=== PATIENT | male | born 1950 | race Caucasian/White ===

== ENCOUNTER 2017-09-09 19:14 | Inpatient (IN) ==
[2017-09-09] MEDS ORDERED: Isovue-370 500 ML INFUS..BTL IV ONE (19:36)
--- NOTE | 2017-09-09 19:37 | Emergency Department Note ---
Disposition Clinical Impression: Perforation of sigmoid colon due to diverticulitis Leukocytosis Qualifiers: Leukocytosis type: unspecified Qualified Code(s): D72.829 - Elevated white blood cell count, unspecified Disposition: Admitted As Inpatient Condition: Fair Forms: ED Satisfaction Letter, Work/School Release Time of Disposition: 22:30 Abdominal Pain HPI - General Chief Complaint: ED Abdominal Pain Stated Complaint: CP, Abd pain, fever Time Seen by Provider: 09/09/17 19:35 Source: patient, family Mode of arrival: ambulatory Limitations: no limitations Nursing Notes Reviewed: Yes Vital Signs Reviewed: Yes - History of Present Illness HPI Narrative: Patient presents to the ED if the chief complaint of abdominal pain. Patient reports that he started developing some epigastric abdominal pain yesterday. States that he felt like he was constipated, so he started eating some prunes. States that he was massaging his abdomen and felt like the pain was moving more towards his bladder. Reports that his abdomen feels slightly more distended than usual. Also developed a fever with Tmax around 102 he said but it did respond to tylenol. States the pain is crampy and sharp at times. Nothing really seems to make it better but eating makes it worse. No h/o pancreatitis or kidney stones. No chest pain, shortness of breath, nausea, vomiting or diarrhea. Patient reports that he had diarrhea last week after being on 2 antibiotics for a dental infection. States that he has a history of trigeminal neuralgia and has been on and off antibiotics over the last month. Pain Scale: 7 - Related Data Home Medications Medication Instructions Recorded Confirmed Aspirin [Ecotrin] 325 mg PO DAILY 09/09/17 09/09/17 CarBAMazepine [Carbamazepine ER] 200 mg PO BID 09/09/17 09/09/17 Chlorhexidine Gluconate [Periogard] 15 ml MM BID PRN 09/09/17 09/09/17 Fenofibrate [Tricor] 54 mg PO DAILY 09/09/17 09/09/17 Fluticasone Propionate Nasal 1 spray NS DAILY 09/09/17 09/09/17 [Flonase] Folic Acid 1 mg PO DAILY 09/09/17 09/09/17 Metoprolol Tartrate [Metoprolol 50 mg PO BID 09/09/17 09/09/17 Tartrate] Nitroglycerin [Nitrostat] 0.4 mg SL Q5M PRN 09/09/17 09/09/17 Simvastatin [Zocor] 80 mg PO DAILY 09/09/17 09/09/17 Triamterene/Hydrochlorothiazid 1 cap PO DAILY 09/09/17 09/09/17 [Dyazide 37.5-25 Capsule] Vitamin E (Dl,Tocopheryl Acet) 400 unit PO DAILY 09/09/17 09/09/17 [Vitamin E] cloNIDine HCl [CloNIDine HCl] 0.1 mg PO BID 09/09/17 09/09/17 Allergies Allergy/AdvReac Type Severity Reaction Status Date / Time honey suckle Allergy Congested Uncoded 01/20/16 08:15 Review of Systems: As reviewed in the HPI. All other systems reviewed are negative or normal. Abdominal Pain PMH - Past Medical History Medical history: Reports: cancer, diabetes, hyperlipidemia, hypertension, myocardial infarction, other Male Surgical History: Reports: angioplasty/stent, cancer surgery Psychiatric history: Reports: no psych history - Social History Smoking status: Former smoker Alcohol use: Reports: none Drug use: Reports: none Physical Exam - General Limitations: no limitations General appearance: alert, in no apparent distress - Head Head exam: atraumatic, normocephalic, normal inspection - Eye Eye exam: Present: normal appearance, PERRL, EOMI - ENT ENT exam: normal exam, normal oropharynx, mucous membranes moist - Neck Neck exam: Present: normal inspection, full ROM, trachea midline - Chest Chest inspection: Present: normal inspection, symmetric chest wall rise - Respiratory Respiratory exam: Present: normal lung sounds bilaterally - Cardiovascular Cardiovascular exam: Present: regular rate, normal rhythm, normal heart sounds - Abdominal Exam Abdominal exam: Present: soft, tenderness, distention, guarding, hyperactive bowel sounds. Absent: rebound, rigidity Abdominal tenderness: Present: LUQ, LLQ, diffuse, mild, moderate - Extremities Exam Extremities exam: Present: normal inspection, full ROM. Absent: tenderness, pedal edema Course Course Narrative: Patient presenting to the ED with abdominal pain. Said several antibiotics recently and then diarrhea and now having diffuse crampy abdominal pain and distention. We will get labs and CT abdomen and pelvis. - Reevaluation(s) Reevaluation #1: Got called by [facility] and was told that the patient has a perforated likely diverticulitis. Spoke with on-call surgeon, who called [facility] and reviewed the CT himself and would like the patient to have an NG tube and admitted to the ICU for close monitoring. No surgery indicated at this time. Antibiotics started, and he is agreeable with Kayli. Dr. Wheeler will see him in consult and patient has been admitted to Dr. Espinosa as the hospitalist who also requested blood cultures. Patient aware and agreeable. Vital Signs Temperature 98.9 F 09/09/17 19:25 Pulse Rate 91 09/09/17 19:25 Respiratory Rate 18 09/09/17 19:25 Blood Pressure 144/75 09/09/17 19:25 O2 Sat by Pulse Oximetry 94 09/09/17 19:25 Temperature 98.9 F 09/09/17 19:25 Pulse Rate 84 09/09/17 21:05 Respiratory Rate 18 09/09/17 21:05 Blood Pressure 124/67 09/09/17 21:05 O2 Sat by Pulse Oximetry 94 09/09/17 21:05 Oxygen Delivery Oxygen Delivery Room Air Abdominal Pain - Lab Data Result diagrams: 09/09/17 19:43 09/09/17 19:43 Lab Results 09/09/17 09/09/17 09/09/17 Range/Units 19:43 19:43 19:43 WBC 14.7 H (4.3-11.1) K/mcL RBC 5.29 (4.19-5.50) M/mcL Hgb 14.9 (12.9-16.9) g/dL Hct 45.0 (37.5-50.1) % MCV 85.1 (83.0-100.0) fL MCH 28.2 (28.0-33.3) pg MCHC 33.1 (31.6-35.5) g/dL RDW 13.6 (11.5-14.5) % Plt Count 253 (140-400) K/mcL MPV 11.3 (9.4-12.4) fL Immature Gran % 0.5 (0-4) % Seg Neutrophils % 90.9 % Lymphocytes % 2.5 % Monocytes % 5.9 % Eosinophils % 0.0 % Basophils % 0.2 % Neutrophils # 13.3 H (1.6-8.9) K/mcL Lymphocytes # 0.4 L (0.6-4.6) K/mcL Monocytes # 0.9 (0.0-1.3) K/mcL Eosinophils # 0.0 (0.0-0.6) K/mcL Basophils # 0.0 (0.0-0.2) K/mcL Sodium 135 L (136-145) mEq/L Potassium 3.8 (3.5-5.1) mEq/L Chloride 98 (98-107) mEq/L Carbon Dioxide 25 (23-29) mEq/L BUN 25 H (8-23) mg/dL Creatinine 1.44 H (0.70-1.30) mg/dL Est GFR ( Amer) 60 (> 60) Est GFR (Non-Af Amer) 49 L (> 60) BUN/Creatinine Ratio 17 (6-26) Glucose 181 H (70-105) mg/dL Calculated Osmolality 289 (280-300) Lactic Acid 1.3 (0.5-2.2) mmol/L Calcium 10.1 (8.6-10.3) mg/dL Total Bilirubin 1.0 (0.3-1.0) mg/dL Direct Bilirubin 0.3 H (0.0-0.2) mg/dL Indirect Bilirubin 0.7 (0.0-1.2) mg/dL AST 16 (13-39) Units/L ALT 12 (7-52) Units/L Alkaline Phosphatase 66 (34-104) Units/L Serum Total Protein 7.7 (6.4-8.9) g/dL Albumin 4.5 (3.5-5.7) g/dL Globulin 3.2 (2.4-3.5) g/dL Albumin/Globulin Ratio 1.4 (1.1-2.2) Lipase 25 (11-82) Units/L
[2017-09-09 19:56] LABS: Hemoglobin 14.9 g/dL (12.9-16.9); Immature Granulocytes % 0.5 % (0-4); Lymphocytes % 2.5 %; Mean Corpuscular HGB Conc 33.1 g/dL (31.6-35.5); Mean Corpuscular Hemoglobin 28.2 pg (28.0-33.3); Mean Corpuscular Volume 85.1 fL (83.0-100.0); Mean Platelet Volume 11.3 fL (9.4-12.4); Monocytes % 5.9 %; Platelet Count 253 K/mcL (140-400); Red Blood Count 5.29 M/mcL (4.19-5.50); Red Cell Distribution Width 13.6 % (11.5-14.5); Segmented Neutrophils % 90.9 %
[2017-09-09 19:57] LABS: Basophils % 0.2 %; Lymphocytes # 0.4 K/mcL (0.6-4.6); Monocytes # 0.9 K/mcL (0.0-1.3); Neutrophils # 13.3 K/mcL (1.6-8.9)
[2017-09-09 20:16] LABS: Albumin 4.5 g/dL (3.5-5.7); Albumin/Globulin Ratio 1.4 (1.1-2.2); Bilirubin,Direct 0.3 mg/dL (0.0-0.2); Bilirubin,Indirect 0.7 mg/dL (0.0-1.2); Calcium 10.1 mg/dL (8.6-10.3); Globulin 3.2 g/dL (2.4-3.5); Potassium 3.8 mEq/L (3.5-5.1); Total Protein 7.7 g/dL (6.4-8.9)
[2017-09-09] MEDS ORDERED: Piperacillin/Tazobactam 3.375 GM in 0.9 % Sodium Chloride Mini Bag 100 ML IVPB ONE (22:05)
--- NOTE | 2017-09-09 22:46 | Emergency Department Note ---
Disposition Clinical Impression: Perforation of sigmoid colon due to diverticulitis Leukocytosis Qualifiers: Leukocytosis type: unspecified Qualified Code(s): D72.829 - Elevated white blood cell count, unspecified Disposition: Admitted As Inpatient Condition: Fair Referrals: Elroy Pritchett Jr, MD [Primary Care Provider] - Abdominal Pain HPI - General Chief Complaint: ED Abdominal Pain Stated Complaint: CP, Abd pain, fever Time Seen by Provider: 09/09/17 19:35 Source: patient, family Mode of arrival: ambulatory Limitations: no limitations Nursing Notes Reviewed: Yes Vital Signs Reviewed: Yes - History of Present Illness Pain Scale: 7 - Related Data Home Medications Medication Instructions Recorded Confirmed Aspirin [Ecotrin] 325 mg PO DAILY 09/09/17 09/09/17 CarBAMazepine [Carbamazepine ER] 200 mg PO BID 09/09/17 09/09/17 Chlorhexidine Gluconate [Periogard] 15 ml MM BID PRN 09/09/17 09/09/17 Fenofibrate [Tricor] 54 mg PO DAILY 09/09/17 09/09/17 Fluticasone Propionate Nasal 1 spray NS DAILY 09/09/17 09/09/17 [Flonase] Folic Acid 1 mg PO DAILY 09/09/17 09/09/17 Metoprolol Tartrate [Metoprolol 50 mg PO BID 09/09/17 09/09/17 Tartrate] Nitroglycerin [Nitrostat] 0.4 mg SL Q5M PRN 09/09/17 09/09/17 Simvastatin [Zocor] 80 mg PO DAILY 09/09/17 09/09/17 Triamterene/Hydrochlorothiazid 1 cap PO DAILY 09/09/17 09/09/17 [Dyazide 37.5-25 Capsule] Vitamin E (Dl,Tocopheryl Acet) 400 unit PO DAILY 09/09/17 09/09/17 [Vitamin E] cloNIDine HCl [CloNIDine HCl] 0.1 mg PO BID 09/09/17 09/09/17 Allergies Allergy/AdvReac Type Severity Reaction Status Date / Time honey suckle Allergy Congested Uncoded 01/20/16 08:15 Abdominal Pain PMH - Past Medical History Medical history: Reports: cancer, diabetes, hyperlipidemia, hypertension, myocardial infarction, other Male Surgical History: Reports: angioplasty/stent, cancer surgery Psychiatric history: Reports: no psych history - Social History Smoking status: Former smoker Alcohol use: Reports: none Drug use: Reports: none Physical Exam - General Limitations: no limitations General appearance: alert, in no apparent distress Course Vital Signs Temperature 98.9 F 09/09/17 19:25 Pulse Rate 91 09/09/17 19:25 Respiratory Rate 18 09/09/17 19:25 Blood Pressure 144/75 09/09/17 19:25 O2 Sat by Pulse Oximetry 94 09/09/17 19:25 Temperature 98.9 F 09/09/17 19:25 Pulse Rate 84 09/09/17 21:05 Respiratory Rate 18 09/09/17 21:05 Blood Pressure 124/67 09/09/17 21:05 O2 Sat by Pulse Oximetry 94 09/09/17 21:05 Oxygen Delivery Oxygen Delivery Room Air Abdominal Pain - Lab Data Result diagrams: 09/09/17 19:43 09/09/17 19:43 Lab Results 09/09/17 09/09/17 09/09/17 Range/Units 19:43 19:43 19:43 WBC 14.7 H (4.3-11.1) K/mcL RBC 5.29 (4.19-5.50) M/mcL Hgb 14.9 (12.9-16.9) g/dL Hct 45.0 (37.5-50.1) % MCV 85.1 (83.0-100.0) fL MCH 28.2 (28.0-33.3) pg MCHC 33.1 (31.6-35.5) g/dL RDW 13.6 (11.5-14.5) % Plt Count 253 (140-400) K/mcL MPV 11.3 (9.4-12.4) fL Immature Gran % 0.5 (0-4) % Seg Neutrophils % 90.9 % Lymphocytes % 2.5 % Monocytes % 5.9 % Eosinophils % 0.0 % Basophils % 0.2 % Neutrophils # 13.3 H (1.6-8.9) K/mcL Lymphocytes # 0.4 L (0.6-4.6) K/mcL Monocytes # 0.9 (0.0-1.3) K/mcL Eosinophils # 0.0 (0.0-0.6) K/mcL Basophils # 0.0 (0.0-0.2) K/mcL Sodium 135 L (136-145) mEq/L Potassium 3.8 (3.5-5.1) mEq/L Chloride 98 (98-107) mEq/L Carbon Dioxide 25 (23-29) mEq/L BUN 25 H (8-23) mg/dL Creatinine 1.44 H (0.70-1.30) mg/dL Est GFR ( Amer) 60 (> 60) Est GFR (Non-Af Amer) 49 L (> 60) BUN/Creatinine Ratio 17 (6-26) Glucose 181 H (70-105) mg/dL Calculated Osmolality 289 (280-300) Lactic Acid 1.3 (0.5-2.2) mmol/L Calcium 10.1 (8.6-10.3) mg/dL Total Bilirubin 1.0 (0.3-1.0) mg/dL Direct Bilirubin 0.3 H (0.0-0.2) mg/dL Indirect Bilirubin 0.7 (0.0-1.2) mg/dL AST 16 (13-39) Units/L ALT 12 (7-52) Units/L Alkaline Phosphatase 66 (34-104) Units/L Serum Total Protein 7.7 (6.4-8.9) g/dL Albumin 4.5 (3.5-5.7) g/dL Globulin 3.2 (2.4-3.5) g/dL Albumin/Globulin Ratio 1.4 (1.1-2.2) Lipase 25 (11-82) Units/L Attestation Statement - Attestation Attestation: I, Pradip Valdivia, examined this patient and my medical decision-making was reviewed with the PASTRY ASSISTANT/PA/Advanced Practice Nurse/Resident Physician. I agree with the documented findings, disposition and treatment plan as described except to the extent set forth below. 66-year-old male presents emergency Department with concerns of abdominal pain. Patient states pain is not worsening over the past few days and is unable to get out of bed today secondary to pain. Never pain like this in the past. Tenderness to palpation present in the epigastrium and left lower quadrant. Reports a fever at home, took ibuprofen prior to arrival. Denies hematemesis, hematochezia, melena. Patient is nauseated but he has not vomited. No syncope , chest pain, shortness of breath. CT of the abdomen and pelvis shows pneumoperitoneum likely secondary to perforated diverticulitis. Resident, Dr. Boykin spoke with the surgeon, Dr. Wheeler who recommended admission to the hospitalist with IV antibiotics. He should comfortable with this plan of action. Dr. Wheeler also recommended nasogastric tube for decompression of the bowels.
--- NOTE | 2017-09-09 22:48 | Internal Med History&Physical ---
Date of Encounter: 09/10/17 Time of Encounter: 22:44 Internal Medicine - H&P: HPI Chief complaint: Abd pain Admitted From: Home History of present illness: Mr. Mohan is a 66 year old male with a PMH of diet controlled diabetes mellitus type 2, CAD, HTN, HLD, ADELE, and trigeminal neuralgia who presented complaining of fever and epigastric abdominal pain since yesterday afternoon radiating to the suprapubic region. Pain severity and distention has gradually worsened. Patient reports fever with temperature 102 F at home which did not resolve after taking Tylenol. Patient reports diarrhea last week after being on two antibiotics for a dental infection. Patient denies chest pain, shortness of breath, nausea, vomiting, or diarrhea. He is not on any blood thinners. Last colonoscopy 10 years ago revealed diverticulosis. Past Med Surg Social Fam HX - Past Medical History Medical history: cancer, diabetes, hyperlipidemia, hypertension, myocardial infarction, other Additional medical history: trigeminal neuralgia Psychiatric history: no psych history - Past Surgical History Additional surgical history: skin cancer - Social History Smoking Status: Former smoker Smokeless Tobacco Status: No Alcohol use: none Drug use: none - Family History Father Hx Family Cardiac Disorders: Yes (CAD, a-fib) Mother Hx Family Cardiac Disorders: Yes (HTN) Hx Family Neurologic Disorders: Yes (CVA) Internal Medicine - H&P: Meds Aspirin [Ecotrin] 325 mg PO DAILY 09/09/17 [History] CarBAMazepine [Carbamazepine ER] 200 mg PO BID 09/09/17 [History] Chlorhexidine Gluconate [Periogard] 15 ml MM BID PRN 09/09/17 [History] Fenofibrate [Tricor] 54 mg PO DAILY 09/09/17 [History] Fluticasone Propionate Nasal [Flonase] 1 spray NS DAILY 09/09/17 [History] Folic Acid 1 mg PO DAILY 09/09/17 [History] Metoprolol Tartrate [Metoprolol Tartrate] 50 mg PO BID 09/09/17 [History] Nitroglycerin [Nitrostat] 0.4 mg SL Q5M PRN 09/09/17 [History] Simvastatin [Zocor] 80 mg PO DAILY 09/09/17 [History] Triamterene/Hydrochlorothiazid [Dyazide 37.5-25 Capsule] 1 cap PO DAILY [History] Vitamin E (Dl,Tocopheryl Acet) [Vitamin E] 400 unit PO DAILY 09/09/17 [History] cloNIDine HCl [CloNIDine HCl] 0.1 mg PO BID 09/09/17 [History] 3 Allergy/AdvReac Type Severity Reaction Status Date / Time honey suckle Allergy Congested Uncoded 01/20/16 08:15 All Systems PM: A 10-system review of systems was performed and is negative for pertinent findings except as documented above in the HPI. - Constitutional Constitutional: anorexia, fatigue, fever(s), lethargy, no chills, no weakness, no weight gain, no weight loss - EENT Eyes: no blurry vision, no diplopia Nose, mouth and throat: no sinus pain, no sore throat - Cardiovascular Cardiovascular ROS IM: palpitations, no chest pain, no lightheadedness - Respiratory Respiratory: no cough, no dyspnea on exertion, no wheezing - Gastrointestinal Gastrointestinal: abdominal pain, cramping, no diarrhea, no melena, no nausea, no vomiting - Genitourinary Genitourinary ROS male: no dysuria, no hematuria, no urinary frequency, no urinary urgency - Musculoskeletal Musculoskeletal ROS IM: no back pain, no muscle cramps, no numbness, no tingling - Integumentary Integumentary IM: no erythema, no rash, no skin ulcer, no jaundice - Neurological Neurological ROS: weakness, no confusion, no numbness, no tingling - Psychiatric Psychiatric: no anxiety, no depression - Endocrine Endocrine IM: fatigue, no polydipsia, no polyphagia, no polyuria - Hematologic/Lymphatic Hematologic/Lymphatic: no easy bleeding, no easy bruising - Constitutional Vitals: Temp Pulse Resp BP Pulse Ox 98.9 F 84 18 124/67 94 09/09/17 19:25 09/09/17 21:05 09/09/17 21:05 09/09/17 21:05 09/09/17 21:05 General appearance: Present: cooperative, mild distress, A&O X 3, pleasant, answers questions appropriately - Head Head exam: Present: atraumatic, normocephalic - Eye Eye exam: Present: PERRL, conjuntiva pink, sclera anicteric Pupils: Present: PERRL - ENT ENT exam: Present: mucous membranes dry (NG tube in place), normal exam, normal oropharynx - Neck Neck exam general surgery: Present: supple, trachea midline. Absent: lymphadenopathy - Respiratory Respiratory exam: Present: CTAB. Absent: accessory muscle use, rales, rhonchi, wheezes - Cardiovascular Cardiovascular exam: Present: RRR, +S1, +S2. Absent: diastolic murmur, gallop, rubs, systolic murmur - GI/Abdominal GI/Abdominal exam: Present: diminished bowel sounds, distended, soft, tenderness (Diffuse), no peritoneal signs - Extremities Exam Extremities exam: Present: normal capillary refill, normal inspection, warm, radial pulses palpable and symmetrical. Absent: calf tenderness, cyanotic, pedal edema - Back Exam Back exam: Present: normal inspection. Absent: paraspinal tenderness, tenderness - Neurological Exam Neurological exam: Present: CN II-XII intact, oriented X3, no focal deficits. Absent: pronater drift, facial droop, speech deficit - Psychiatric Psychiatric exam: Present: normal affect, normal mood - Skin Skin exam: Present: dry, intact, normal color, warm Internal Med - H&P Results - Labs CBC & Chem 7: 09/09/17 19:43 09/09/17 19:43 - Pulse Oximetry Interpretation Digit-Finger O2 Sat by Pulse Oximetry: 94 (Room air) - Impressions ITS Impressions Abdomen/Pelvis CT 09/09/17 19:36 IMPRESSION: Pneumoperitoneum, probably due to either perforated sigmoid diverticulitis or adjacent perforated small bowel. There is a very small fluid and gas collection adjacent to the abnormal small bowel without a definable wall which argues against an abscess. This may simply represent a loculated fluid and gas collection related to the perforation. Critical results were called by Dr. Jacky Bagley MD to Nahid Boykin on 09/09/2017 at 21:42. D/ / Jacky Bagley MD / Jacky Bagley MD Interpreting Provider: Jacky Bagley MD - Assessment and plan (1) Perforation of sigmoid colon due to diverticulitis Current Visit: Yes Status: Acute Assessment and plan: Patient with fever, abd distension and CT abd/plv reveals pneumoperitoneum, probably due to either perforated sigmoid diverticulitis or adjacent perforated small bowel. Last colonoscopy 10 years ago revealed diverticulosis. ER physician discussed case and CT findings with surgeon, Dr. Wheeler NG tube placed in the ED Continue empiric Zosyn Continue normal saline 100 mL/h Nothing by mouth Await further surgeon recommendations, anticipate exploratory laparotomy vs. antibiotic management depending on clinical course Continue close monitoring (2) PONCHO (acute kidney injury) Current Visit: Yes Status: Acute Assessment and plan: Diabetic patient with elevated creatinine, GFR 49, unknown history of CKD Hold home hydrochlorothiazide Avoid nephrotoxins Continue gentle hydration Continue to monitor (3) Diabetes mellitus type 2 in nonobese Current Visit: No Status: Chronic Assessment and plan: HGB a1c 5.9 on 06/05/17 Diet controlled Continue accu-checks (4) CAD (coronary artery disease) Current Visit: No Status: Chronic Assessment and plan: Continue home meds: ASA, NTG Qualifiers: Coronary Disease-Associated Artery/Lesion type: unspecified vessel or lesion type [place] vs. transplanted heart: [place] heart Associated angina: without angina Qualified Code(s): I25.10 - Atherosclerotic heart disease of [place] coronary artery without angina pectoris (5) Hypertension Current Visit: No Status: Chronic Assessment and plan: Continue home meds: Metoprolol, Clonidine Qualifiers: Hypertension type: essential hypertension Qualified Code(s): I10 - Essential (primary) hypertension (6) Hyperlipidemia Current Visit: No Status: Chronic Assessment and plan: Continue home meds: Zocor Qualifiers: Hyperlipidemia type: unspecified Qualified Code(s): E78.5 - Hyperlipidemia , unspecified (7) ADELE on CPAP Current Visit: No Status: Chronic Assessment and plan: Continue CPAP at bedtime (8) DVT prophylaxis Current Visit: No Status: Chronic Assessment and plan: EPCDs - Time Spent With Patient Total time spent is greater than 50% in coordination of care (as documented) at patient's floor/unit and/or counseling patient:
[2017-09-09] MEDS ORDERED: Naloxone 0.4 MG/ML INJ IVP PRN (23:01)
[2017-09-09] MEDS ORDERED: Ondansetron ODT 4 MG TAB.RAPDIS SL PRN (23:01)
[2017-09-09 23:24] LABS: Prothrombin Time 11.8 Seconds (9.4-12.1)
[2017-09-10] MEDS: 0.9 % Sodium Chloride 1,000 ML IVC SCH ×2 (00:13→12:13)
[2017-09-10] MEDS: cloNIDine HCl 0.1 MG TABLET PO SCH ×3 (00:13→20:25)
[2017-09-10] MEDS: OXYCODONE Oral CONC 10 MG/0.5 ML ORAL.SYG SL PRN ×4 (04:26→17:40)
[2017-09-10 05:44] LABS: Basophils % 0.2 %; Eosinophils % 0.1 %; Hemoglobin 13.5 g/dL (12.9-16.9); Immature Granulocytes % 0.4 % (0-4); Lymphocytes # 0.6 K/mcL (0.6-4.6); Lymphocytes % 4.4 %; Mean Corpuscular HGB Conc 32.9 g/dL (31.6-35.5); Mean Corpuscular Hemoglobin 28.1 pg (28.0-33.3); Mean Corpuscular Volume 85.2 fL (83.0-100.0); Mean Platelet Volume 10.9 fL (9.4-12.4); Monocytes # 1.1 K/mcL (0.0-1.3); Monocytes % 7.9 %; Neutrophils # 11.7 K/mcL (1.6-8.9); Platelet Count 217 K/mcL (140-400); Red Blood Count 4.81 M/mcL (4.19-5.50); Red Cell Distribution Width 13.8 % (11.5-14.5)
[2017-09-10 06:10] LABS: Calcium 9.4 mg/dL (8.6-10.3); Potassium 3.5 mEq/L (3.5-5.1)
[2017-09-10] MEDS ORDERED: Piperacillin/Tazobactam 3.375 GM in 0.9 % Sodium Chloride Mini Bag 100 ML IVPB SCH (07:00)
[2017-09-10] MEDS ORDERED: Aspirin Enteric Coated 325 MG Tablet PO SCH (09:00)
[2017-09-10] MEDS ORDERED: Fluticasone Propionate Nasal 50 MCG/SPRAY BOTTLE NS SCH (09:00)
[2017-09-10] MEDS ORDERED: CarBAMazepine XR (12 hr) 100 MG TAB PO SCH (09:00)
[2017-09-10] MEDS ORDERED: Fenofibrate 54 MG TABLET PO SCH (09:00)
[2017-09-10] MEDS ORDERED: Folic Acid 1 MG TABLET PO SCH (09:00)
[2017-09-10] MEDS ORDERED: Naloxone 0.4 MG/ML INJ IVP PRN (09:42)
[2017-09-10] MEDS ORDERED: Ondansetron ODT 4 MG TAB.RAPDIS SL PRN (09:42)
[2017-09-10] MEDS ORDERED: 0.9 % Sodium Chloride 1,000 ML IVC SCH (09:42)
[2017-09-10] MEDS ORDERED: Chlorhexidine Rinse 15 ML MOUTHWASH MM PRN ×2 (10:00)
[2017-09-10] MEDS ORDERED: 0.9 % Sodium Chloride 1,000 ML ONE (10:11)
--- NOTE | 2017-09-10 11:07 | General Surgery Consult Note ---
Date of Encounter: 09/10/17 Time of Encounter: 10:45 Assessment and Plan (1) Perforation of sigmoid colon due to diverticulitis Current Visit: Yes Status: Acute Conservative management: NPO except ice chips and sips with medications NG tube removal IV fluids- 100ml/hour IV antibiotics- Zosyn Supportive care and pain control Serial abdominal exams IS every 1 hour while awake Repeat am labs- CBC, BMP Plan for interval colonoscopy in 6-[address] Wheeler (2) PONCHO (acute kidney injury) Current Visit: Yes Status: Acute Cr- 1.44>1.46 IV fluids Strict I&Os Avoid nephrotoxic medications Repeat am BMP (3) DVT prophylaxis Current Visit: No Status: Chronic Ambulate hallways TID with assistance EPCDs to bilateral lower extremities for DVT prophylaxis History of Present Illness Consult date: 09/09/17 Reason for consult: other (Abnormal CT perforated diverticuitis) Requesting physician: Stan Peralta History of present illness: Mr. Mohan is a 66 year old male who presented to the ED last evening with complaint of acute onset of abdominal pain which started on 09/08/17 around lunch time. He states that the pain was localized to his central abdomen and has since migrated into his lower abdomen. He reports an aching pain which has improved since admission to the hospital. He has never experienced pain like this in the past. He does report having diarrhea for the past few weeks after being treated with PO antibiotics for a sinusitis and then subsequent oral infection. He states that the diarrhea did resolve after completion of antibiotics and he was feeling good until 2 days ago when he developed abdominal pain. Admits to nausea but denies any vomiting. Denies any constipation. Denies any melena or hematochezia. Admits to fever up to 101.5 yesterday. Denies any chest pains or shortness of breath. Mild discomfort noted today with urination. He has had a CAT scan completed which shows evidence of suspected perforated diverticulitis. The patient has been admitted to the hospital for further workup and treatment. We have been asked to see and evaluate him for further recommendations. Past Med Surg Social Fam HX - Past Medical History Source: patient, old records reviewed Medical history: cancer (skin- squamous cell carcinoma (right parietal scalp)), diabetes, hyperlipidemia, hypertension, myocardial infarction, other Additional medical history: trigeminal neuralgia, sleep apnea Psychiatric history: no psych history - Past Surgical History Surgical History: angioplasty/stent (angioplasty only in 1993), vasectomy Additional surgical history: skin cancer- Mohs procedure; Colonoscopy [address] Bains - Social History Smoking Status: Former smoker Smokeless Tobacco Status: No Alcohol use: none Drug use: none Current living situation: Home - Independent Activity Level: Independent ambulation - Family History Father Hx Family Cardiac Disorders: Yes (CAD, a-fib) Mother Living Status: Cause of : Hemorrhagic CVA Hx Family Cardiac Disorders: Yes (HTN) Hx Family Neurologic Disorders: Yes (CVA) Medications and Allergies Aspirin [Ecotrin] 325 mg PO DAILY 09/09/17 [History] CarBAMazepine [Carbamazepine ER] 200 mg PO BID 09/09/17 [History] Chlorhexidine Gluconate [Periogard] 15 ml MM BID PRN 09/09/17 [History] Fenofibrate [Tricor] 54 mg PO DAILY 09/09/17 [History] Fluticasone Propionate Nasal [Flonase] 1 spray NS DAILY 09/09/17 [History] Folic Acid 1 mg PO DAILY 09/09/17 [History] Metoprolol Tartrate [Metoprolol Tartrate] 50 mg PO BID 09/09/17 [History] Nitroglycerin [Nitrostat] 0.4 mg SL Q5M PRN 09/09/17 [History] Simvastatin [Zocor] 80 mg PO DAILY 09/09/17 [History] Triamterene/Hydrochlorothiazid [Dyazide 37.5-25 Capsule] 1 cap PO DAILY [History] Vitamin E (Dl,Tocopheryl Acet) [Vitamin E] 400 unit PO DAILY 09/09/17 [History] cloNIDine HCl [CloNIDine HCl] 0.1 mg PO BID 09/09/17 [History] 3 Allergy/AdvReac Type Severity Reaction Status Date / Time honey suckle Allergy Congested Uncoded 01/20/16 08:15 Review of Systems All systems PM: reviewed and no additional remarkable complaints except as stated (in the HPI) All systems PM: The remainder of the systems were reviewed and are negative General Surgery Exam Initial Vital Signs Temp Pulse Resp BP Pulse Ox 98.9 F 91 18 144/75 94 09/09/17 19:25 09/09/17 19:25 09/09/17 19:25 09/09/17 19:25 09/09/17 19:25 - General physical appearance well developed, well nourished, moderate pain - Eyes normal ocular movement - ENT normal mucosa, atraumatic, normocephalic - Neck trachea midline - Respiratory normal respiratory effort, clear to auscultation - Cardiovascular Cardiovascular exam: Present: RRR - Abdomen Abdomen general surgery: Present: bowel sounds present, soft, tender (mildly ), wound (NG tube to LIWS with minimal drainage noted) Abdominal Tenderness: Present: suprapubic - Integumentary Integumentary general surgery: Present: warm and dry - Neurologic Present: CN 2-12 grossly intact - Musculoskeletal Present: normal gait, normal posture - Psychiatric Psychiatric general surgery: Present: appropriate, oriented to person, oriented to place, oriented to time, speech is normal, memory intact Exam Initial Vital Signs Temp Pulse Resp BP Pulse Ox 98.9 F 91 18 144/75 94 09/09/17 19:25 09/09/17 19:25 09/09/17 19:25 09/09/17 19:25 09/09/17 19:25 Results - Labs 09/10/17 05:28 09/10/17 05:28 Abnormal lab results WBC 13.4 K/mcL (4.3-11.1) H 09/10/17 05:28 Neutrophils # 11.7 K/mcL (1.6-8.9) H 09/10/17 05:28 BUN 27 mg/dL (8-23) H 09/10/17 05:28 Creatinine 1.46 mg/dL (0.70-1.30) H 09/10/17 05:28 Est GFR ( Amer) 59 (> 60) L 09/10/17 05:28 Est GFR (Non-Af Amer) 48 (> 60) L 09/10/17 05:28 Glucose 136 mg/dL (70-105) H 09/10/17 05:28 POC Glucose 152 mg/dL (70-99) H 09/09/17 23:12 Direct Bilirubin 0.3 mg/dL (0.0-0.2) H 09/09/17 19:43 Diabetes panel 09/10/17 Range/Units 05:28 Sodium 137 (136-145) mEq/L Potassium 3.5 (3.5-5.1) mEq/L Chloride 102 (98-107) mEq/L Carbon Dioxide 23 (23-29) mEq/L BUN 27 H (8-23) mg/dL Creatinine 1.46 H (0.70-1.30) mg/dL Glucose 136 H (70-105) mg/dL Calcium 9.4 (8.6-10.3) mg/dL Calcium panel 09/10/17 Range/Units 05:28 Calcium 9.4 (8.6-10.3) mg/dL Pituitary panel 09/10/17 Range/Units 05:28 Sodium 137 (136-145) mEq/L Potassium 3.5 (3.5-5.1) mEq/L Chloride 102 (98-107) mEq/L Carbon Dioxide 23 (23-29) mEq/L BUN 27 H (8-23) mg/dL Creatinine 1.46 H (0.70-1.30) mg/dL Glucose 136 H (70-105) mg/dL Calcium 9.4 (8.6-10.3) mg/dL Adrenal panel 09/10/17 Range/Units 05:28 Sodium 137 (136-145) mEq/L Potassium 3.5 (3.5-5.1) mEq/L Chloride 102 (98-107) mEq/L Carbon Dioxide 23 (23-29) mEq/L BUN 27 H (8-23) mg/dL Creatinine 1.46 H (0.70-1.30) mg/dL Glucose 136 H (70-105) mg/dL Calcium 9.4 (8.6-10.3) mg/dL All other labs normal. - Imaging CT scan - abdomen: report reviewed CT scan - pelvis: report reviewed Additional studies: Abdomen/Pelvis CT 09/09/17 19:36 IMPRESSION: Pneumoperitoneum, probably due to either perforated sigmoid diverticulitis or adjacent perforated small bowel. There is a very small fluid and gas collection adjacent to the abnormal small bowel without a definable wall which argues against an abscess. This may simply represent a loculated fluid and gas collection related to the perforation. Critical results were called by Dr. Jacky Bagley MD to Nahid Ashutosh on 09/09/2017 at 21:42. D/ / Jacky Bagley MD / Jacky Bagley MD Interpreting Provider: Jacky Bagley MD Consult Discharge Plan - Plan Referrals: Elroy Pritchett Jr, MD [Primary Care Provider] - - Attending Attestation For this encounter, I have reviewed the WAVE GUIDE ASSEMBLER or PA documentation, treatment plan, and medical decision making; and I have had face to face time with this patient.
[2017-09-10] MEDS: Piperacillin/Tazobactam 3.375 GM in 0.9 % Sodium Chloride Mini Bag 100 ML IVPB SCH (14:08)
--- NOTE | 2017-09-10 16:04 | Internal Med Progress Note ---
Date of Encounter: 09/10/17 Time of Encounter: 16:02 - Assessment and plan (1) Hypertension Current Visit: No Status: Chronic Assessment and plan: Continue home meds: Metoprolol and Clonidine Qualifiers: Hypertension type: essential hypertension Qualified Code(s): I10 - Essential (primary) hypertension (2) Perforation of sigmoid colon due to diverticulitis Current Visit: Yes Status: Acute Assessment and plan: Patient with fever, abd distension and CT abd/plv reveals pneumoperitoneum, probably due to either perforated sigmoid diverticulitis or adjacent perforated small bowel. Last colonoscopy 10 years ago revealed diverticulosis. NG placed in Ed discontinued. Continue on Zosyn and fluids. NPO. Surgery monitoring on conservative management for now with Zosyn, fluids, pain ocntrol and serial abdominal x rays. Recommending Plan for interval colonoscopy in 6-[address] Summer thorne (3) Hyperlipidemia Current Visit: No Status: Chronic Assessment and plan: Continue home meds: Zocor Qualifiers: Hyperlipidemia type: unspecified Qualified Code(s): E78.5 - Hyperlipidemia , unspecified (4) Diabetes mellitus type 2 in nonobese Current Visit: No Status: Chronic Assessment and plan: HGB a1c 5.9 on 06/05/17. Diet controlled. Continue accu-checks (5) CAD (coronary artery disease) Current Visit: No Status: Chronic Assessment and plan: Continue home meds: ASA and NTG prn Qualifiers: Coronary Disease-Associated Artery/Lesion type: unspecified vessel or lesion type [place] vs. transplanted heart: [place] heart Associated angina: without angina Qualified Code(s): I25.10 - Atherosclerotic heart disease of [place] coronary artery without angina pectoris (6) ADELE on CPAP Current Visit: No Status: Chronic Assessment and plan: Continue CPAP at bedtime (7) DVT prophylaxis Current Visit: No Status: Chronic Assessment and plan: EPCDs (8) PONCHO (acute kidney injury) Current Visit: Yes Status: Acute Assessment and plan: Diabetic patient with elevated creatinine, GFR 49, unknown history of CKD Hold home hydrochlorothiazide Avoid nephrotoxins. Continue gentle hydration Continue to monitor renal function daily. - Time Spent With Patient Total time spent is greater than 50% in coordination of care (as documented) at patient's floor/unit and/or counseling patient: less than 15 minutes - Subjective Interval history: Pt states he tried moving around and his developed abdominal pain. Denies fever and chills. Denies N/V or diarrhea. Denies CP or SOB. - Constitutional Vitals: Temp Pulse Resp BP Pulse Ox 98.3 F 79 19 133/78 96 09/10/17 11:53 09/10/17 11:53 09/10/17 11:53 09/10/17 11:53 09/10/17 11:53 General appearance: Present: cooperative, mild distress, A&O X 3, pleasant, answers questions appropriately - Head Head exam: Present: atraumatic, normocephalic - Eye Eye exam: Present: PERRL, conjuntiva pink, sclera anicteric Pupils: Present: PERRL - Neck Neck exam general surgery: Present: supple, trachea midline. Absent: lymphadenopathy - Respiratory Respiratory exam: Present: CTAB. Absent: accessory muscle use, rales, rhonchi, wheezes - Cardiovascular Cardiovascular exam: Present: RRR, +S1, +S2. Absent: diastolic murmur, gallop, rubs, systolic murmur - GI/Abdominal GI/Abdominal exam: Present: normal bowel sounds, soft, no peritoneal signs. Absent: distended, tenderness Additional comments: generalized abdominal pain with palpation - Extremities Exam Extremities exam: Present: warm, radial pulses palpable and symmetrical. Absent : calf tenderness, cyanotic, pedal edema - Neurological Exam Neurological exam: Present: CN II-XII intact, oriented X3, no focal deficits. Absent: pronater drift, facial droop, speech deficit - Skin Skin exam: Present: dry, intact Internal Medicine: Result - Labs CBC & Chem 7: 09/10/17 05:28 09/10/17 05:28 Labs: Short CBC 09/10/17 Range/Units 05:28 WBC 13.4 H (4.3-11.1) K/mcL Hgb 13.5 (12.9-16.9) g/dL Hct 41.0 (37.5-50.1) % Plt Count 217 (140-400) K/mcL Neutrophils # 11.7 H (1.6-8.9) K/mcL BMP 09/10/17 05:28 Sodium 137 Potassium 3.5 Chloride 102 Carbon Dioxide 23 BUN 27 H Creatinine 1.46 H Glucose 136 H Calcium 9.4 - ABG Interpretation ABG results: PT/INR, D-dimer PT 11.8 Seconds (9.4-12.1) 09/09/17 19:42 - VTE Documentation of Mechanical Device: Intermittent pneumatic compression device Consult Discharge Plan - Plan Referrals: Elroy Pritchett Jr, MD [Primary Care Provider] -
[2017-09-10] MEDS: CarBAMazepine XR (12 hr) 100 MG TAB PO SCH (20:25)
[2017-09-11] MEDS: Piperacillin/Tazobactam 3.375 GM in 0.9 % Sodium Chloride Mini Bag 100 ML IVPB SCH ×3 (00:25→21:57)
[2017-09-11 05:47] LABS: Basophils % 0.3 %; Eosinophils # 0.2 K/mcL (0.0-0.6); Eosinophils % 1.5 %; Hematocrit 42.3 % (37.5-50.1); Hemoglobin 13.9 g/dL (12.9-16.9); Immature Granulocytes % 0.7 % (0-4); Lymphocytes # 0.7 K/mcL (0.6-4.6); Lymphocytes % 5.5 %; Mean Corpuscular HGB Conc 32.9 g/dL (31.6-35.5); Mean Corpuscular Hemoglobin 28.7 pg (28.0-33.3); Mean Corpuscular Volume 87.4 fL (83.0-100.0); Mean Platelet Volume 11.5 fL (9.4-12.4); Monocytes % 7.9 %; Neutrophils # 10.2 K/mcL (1.6-8.9); Platelet Count 222 K/mcL (140-400); Red Blood Count 4.84 M/mcL (4.19-5.50); Red Cell Distribution Width 13.7 % (11.5-14.5); Segmented Neutrophils % 84.1 %
[2017-09-11 06:06] LABS: BUN/Creatinine Ratio 19 (6-26); Blood Urea Nitrogen 26 mg/dL (8-23); Calcium 9.2 mg/dL (8.6-10.3); Carbon Dioxide 26 mEq/L (23-29); Chloride 104 mEq/L (98-107); Glucose 96 mg/dL (70-105); Osmolality,Calculated 291 (280-300); Potassium 3.9 mEq/L (3.5-5.1); Sodium 138 mEq/L (136-145); eGFR For African Americans > 60 (> 60); eGFR For Non-African Americans 51 (> 60)
--- NOTE | 2017-09-11 06:47 | Electrocardiograph Report ---
[address] [place], [place] [address] Test Date: 2017-09-09 Pat Name: Ike Mohan Department: 104 Room: 2A24 Gender: M Tax Examining Technician: TO : 1950 Requested By: Pradip España Order Number: [id number] Reading MD: Brown Dewey Measurements Intervals [place] Rate: 90 P: 33 UT: 149 QRS: -31 QRSD: 80 T: 46 QT: 338 QTc: 385 Interpretive Statements SINUS RHYTHM LEFT ATRIAL ENLARGEMENT PATTERN CONSISTENT WITH PULMONARY DISEASE LEFT VENTRICULAR HYPERTROPHY INFERIOR MYOCARDIAL INFARCTION, PROBABLY OLD WITH POSTERIOR EXTENSION Electronically Signed On 09-11-2017 6:45:51 EDT by Brown Dewey
--- NOTE | 2017-09-11 08:37 | General Surgery Progress Note ---
Date of Encounter: 09/11/17 Time of Encounter: 08:35 - Assessment and Plan (1) Perforation of sigmoid colon due to diverticulitis Current Visit: Yes Status: Acute Conservative management: Okay to trial liquids in addition to IV fluids per primary team with concern of his kidney injury I&Os IV antibiotics- Zosyn Supportive care and pain control Serial abdominal exams IS every 1 hour while awake Repeat am labs- CBC, BMP Follow up appointment with Dr. Wheeler (2) Leukocytosis Current Visit: Yes Status: Acute continue antibiotics - Zosyn Qualifiers: Leukocytosis type: unspecified Qualified Code(s): D72.829 - Elevated white blood cell count, unspecified (3) PONCHO (acute kidney injury) Current Visit: Yes Status: Acute Avoid nephrotoxic medications continue to monitor renal function (4) DVT prophylaxis Current Visit: No Status: Chronic Ambulate hallways TID with assistance EPCDs to bilateral lower extremities for DVT prophylaxis Subjective Patient reports: no new complaints, feels better, still having pain, pain is less, voiding w/o difficulty, no flatus (2 days since last flatus), no bowel movement, nausea, afebrile (Feeling slighlty better but noticed "bloating") Objective Vital Signs - Last 8 Hours Temp Pulse Resp BP Pulse Ox 09/11/17 06:55 98.4 F 74 16 148/77 95 09/11/17 04:04 98.3 F 77 17 144/77 94 Intake and Output 09/10/17 09/11/17 09/11/17 23:59 07:59 15:59 Intake Total 100 / 100 Balance 100 / 100 Intake: IV Fluids 100 / 100 Zosyn 3.375 GM In 0.9 % Sodium 100 / 100 Chloride (Mini-Bag +) 100 ML @ 25 mls/hr IVPB Q8H [facility] Rx#: [id number] Oral 0 / 0 Other: Meal NPO Percent of Meal Consumed 0% Weight 75.353 kg Blood Glucose* 99 96 Patient Weight 09/11/17 23:59 Weight 75.353 kg - General physical appearance well developed, well nourished, no distress, moderate pain - Eyes normal ocular movement - ENT atraumatic, normocephalic, CN 2-12 grossly intact - Neck Neck exam: no masses - Cardiovascular Cardiovascular exam: Present: RRR, no murmurs/rubs/gallops - Abdomen Abdomen: Present: bowel sounds present, tender Abdominal Tenderness: diffusely Hernia: none - Integumentary no rash, no growths, no abnormal pigmentation - Neurologic normal coordination, normal sensation - Musculoskeletal normal gait, normal posture - Psychiatric oriented to time, oriented to person, oriented to place, speech is normal, memory intact - Labs 09/11/17 04:48 09/11/17 04:48 Diabetes panel 09/11/17 Range/Units 04:48 Sodium 138 (136-145) mEq/L Potassium 3.9 (3.5-5.1) mEq/L Chloride 104 (98-107) mEq/L Carbon Dioxide 26 (23-29) mEq/L BUN 26 H (8-23) mg/dL Creatinine 1.39 H (0.70-1.30) mg/dL Glucose 96 (70-105) mg/dL Calcium 9.2 (8.6-10.3) mg/dL Calcium panel 09/11/17 Range/Units 04:48 Calcium 9.2 (8.6-10.3) mg/dL Pituitary panel 09/11/17 Range/Units 04:48 Sodium 138 (136-145) mEq/L Potassium 3.9 (3.5-5.1) mEq/L Chloride 104 (98-107) mEq/L Carbon Dioxide 26 (23-29) mEq/L BUN 26 H (8-23) mg/dL Creatinine 1.39 H (0.70-1.30) mg/dL Glucose 96 (70-105) mg/dL Calcium 9.2 (8.6-10.3) mg/dL Adrenal panel 09/11/17 Range/Units 04:48 Sodium 138 (136-145) mEq/L Potassium 3.9 (3.5-5.1) mEq/L Chloride 104 (98-107) mEq/L Carbon Dioxide 26 (23-29) mEq/L BUN 26 H (8-23) mg/dL Creatinine 1.39 H (0.70-1.30) mg/dL Glucose 96 (70-105) mg/dL Calcium 9.2 (8.6-10.3) mg/dL - VTE Documentation of Mechanical Device: Intermittent pneumatic compression device Consult Discharge Plan - Plan Referrals: Elroy Pritchett Jr, MD [Primary Care Provider] - Kevin Wheeler DO [Partnered Physician] - 10/14/17 9:00 am
[2017-09-11] MEDS: CarBAMazepine XR (12 hr) 100 MG TAB PO SCH (08:46)
[2017-09-11] MEDS: cloNIDine HCl 0.1 MG TABLET PO SCH (08:46)
[2017-09-11] MEDS ORDERED: Fenofibrate 54 MG TABLET PO SCH (09:00)
[2017-09-11] MEDS ORDERED: Aspirin Enteric Coated 325 MG Tablet PO SCH (09:00)
[2017-09-11] MEDS ORDERED: Fluticasone Propionate Nasal 50 MCG/SPRAY BOTTLE NS SCH (09:00)
[2017-09-11] MEDS ORDERED: Folic Acid 1 MG TABLET PO SCH (09:00)
[2017-09-11] MEDS: OXYCODONE Oral CONC 10 MG/0.5 ML ORAL.SYG SL PRN (12:33)
--- NOTE | 2017-09-11 13:22 | Anesthesia Evaluation PreOp ---
Date of Encounter: 09/11/17 Time of Encounter: 13:19 - Past History Planned Operation: Robotic Diverting Colostomy Cardiac History: [place] (994), HTN, Hyperlipidemia, Other (CAD S/P PTCA) Pulmonary History: Former smoker (quit 30 years ago), Snore, ADELE Dx (uses CPAP) PROJECT MANAGEMENT IT SPECIALIST History: Denies Any Significant HX Other Medical History: Diabetes Type II Anesthesia History: No Prior Anesthetic Complications, Past Anesthesia Alcohol Use: rarely Drug use: none Medications and Allergies Aspirin [Ecotrin] 325 mg PO DAILY 09/09/17 [History] CarBAMazepine [Carbamazepine ER] 200 mg PO BID 09/09/17 [History] Chlorhexidine Gluconate [Periogard] 15 ml MM BID PRN 09/09/17 [History] Fenofibrate [Tricor] 54 mg PO DAILY 09/09/17 [History] Fluticasone Propionate Nasal [Flonase] 1 spray NS DAILY 09/09/17 [History] Folic Acid 1 mg PO DAILY 09/09/17 [History] Metoprolol Tartrate [Metoprolol Tartrate] 50 mg PO BID 09/09/17 [History] Nitroglycerin [Nitrostat] 0.4 mg SL Q5M PRN 09/09/17 [History] Simvastatin [Zocor] 80 mg PO DAILY 09/09/17 [History] Triamterene/Hydrochlorothiazid [Dyazide 37.5-25 Capsule] 1 cap PO DAILY [History] Vitamin E (Dl,Tocopheryl Acet) [Vitamin E] 400 unit PO DAILY 09/09/17 [History] cloNIDine HCl [CloNIDine HCl] 0.1 mg PO BID 09/09/17 [History] 3 Allergy/AdvReac Type Severity Reaction Status Date / Time honey suckle Allergy Congested Uncoded 01/20/16 08:15 - Meds/Allergy Pre-op Review Medications Reviewed: Yes Allergies Reviewed: Yes Beta Blockers on Current Med List: Yes If Beta Blockers taken, Date/Time (Last Dose taken): 09/11/2017 at 0846 Anesthesia Results - Labs 09/11/17 04:48 09/11/17 04:48 - Imaging EKG: report reviewed (09/09/2017 SINUS RHYTHM LEFT ATRIAL ENLARGEMENT PATTERN CONSISTENT WITH PULMONARY DISEASE LEFT VENTRICULAR HYPERTROPHY INFERIOR MYOCARDIAL INFARCTION, PROBABLY OLD WITH POSTERIOR EXTENSION) Anesthesia Exam Vital Signs/O2 Sat/Glucose, Most Recent Temp Pulse Resp BP Pulse Ox 97.4 F L 64 21 125/77 97 09/11/17 11:13 09/11/17 11:13 09/11/17 11:13 09/11/17 11:13 09/11/17 11:13 Blood Glucose* 167 Height: 5'9''/1.75m Weight: 166 lbs/75.35 kg NPO (# of Hours): 8 Pain Scale: 10 (abdomen) Pain Scale Used: Numeric (1 - 10) - HEENT Pupil (Motor): EOMI Mallampati: III Teeth: Poor dentition Oral Opening: Greater than 3 - PROJECT MANAGEMENT IT SPECIALIST LOC: Oriented PROJECT MANAGEMENT IT SPECIALIST Motor: Normal RUE, Normal LUE, Normal RLE, Normal LLE, Normal Face PROJECT MANAGEMENT IT SPECIALIST Sensory: Normal: RUE, LUE, RLE, LLE, Face - Cardiac Rhythm: Regular Murmur: None - Pulmonary Breath Sounds: bilateral Clear (shallow and rapid) Respiratory Effort: Symmetrical Anesthesia Assess/Plan ASA Score: 3, E Modified Anthony Scale for Level of Consciousness: Cooperative, oriented, and tranquil Anesthetic Plan: General Monitoring Plan: Standard Monitors Recovery Plan: PACU
[2017-09-11] MEDS ORDERED: Piperacillin/Tazobactam 3.375 GM in 0.9 % Sodium Chloride Mini Bag 100 ML IVPB ONE (14:19)
[2017-09-11] MEDS ORDERED: *HR* HYDROmorphone (PF) 1 MG/ML SYRINGE IVP PRN (14:59)
[2017-09-11] MEDS ORDERED: *HR* Promethazine 25 MG/ML VIAL IVP PRN (14:59)
[2017-09-11] MEDS ORDERED: Albuterol 2.5 MG/3 ML NEBULIZER IH PRN ×2 (14:59→17:09)
[2017-09-11] MEDS ORDERED: *HR* Meperidine 25 MG/ML SYRINGE IVP PRN (14:59)
[2017-09-11] MEDS ORDERED: Ondansetron 4 MG/2 ML VIAL ONE (15:04)
[2017-09-11] MEDS ORDERED: *HR* Propofol 200 MG/20 ML VIAL IVP ONE (15:04)
[2017-09-11] MEDS ORDERED: Acetaminophen IV 1,000 MG/100 ML INFUS..BTL ONE (15:04)
[2017-09-11] MEDS ORDERED: Lidocaine -MPF 2% 2 ML VIAL ONE (15:04)
[2017-09-11] MEDS ORDERED: *HR* Midazolam HCl 2 MG/2 ML VIAL ONE (15:04)
[2017-09-11] MEDS ORDERED: *HR* Succinylcholine 200 MG/10 ML VIAL IVP ONE (15:04)
[2017-09-11] MEDS ORDERED: *HR* FentaNYL (PF) 100 MCG/2 ML VIAL ONE (15:04)
--- NOTE | 2017-09-11 15:35 | Internal Med Progress Note ---
Date of Encounter: 09/11/17 Time of Encounter: 15:33 - Assessment and plan (1) Perforation of sigmoid colon due to diverticulitis Current Visit: Yes Status: Acute Assessment and plan: Being managed conservatively but patient had sudden worsening of abdominal pain and so has been taking for surgery for resection and colostomy. High risk for complications. (2) Hypertension Current Visit: Yes Status: Chronic Assessment and plan: Elevated earlier but has since improved. Continue home medications. As patient is nothing by mouth postsurgery, will place him on intravenous medications to control his blood pressure. Qualifiers: Hypertension type: essential hypertension Qualified Code(s): I10 - Essential (primary) hypertension (3) Hyperlipidemia Current Visit: No Status: Chronic Assessment and plan: Continue simvastatin Qualifiers: Hyperlipidemia type: unspecified Qualified Code(s): E78.5 - Hyperlipidemia , unspecified (4) Diabetes mellitus type 2 in nonobese Current Visit: No Status: Chronic Assessment and plan: Well-controlled. Monitor blood sugars. Sliding scale insulin. (5) CAD (coronary artery disease) Current Visit: Yes Status: Chronic Assessment and plan: Continue home medications. No chest pain at this time. Qualifiers: Coronary Disease-Associated Artery/Lesion type: unspecified vessel or lesion type [place] vs. transplanted heart: [place] heart Associated angina: without angina Qualified Code(s): I25.10 - Atherosclerotic heart disease of [place] coronary artery without angina pectoris (6) ADELE on CPAP Current Visit: No Status: Chronic Assessment and plan: Use CPAP as needed. (7) DVT prophylaxis Current Visit: No Status: Chronic Assessment and plan: start heparin subcutaneous post surgery (8) PONCHO (acute kidney injury) Current Visit: Yes Status: Acute Assessment and plan: Improving. Continue IV fluids. Creatinine 1.29 today - Time Spent With Patient Total time spent is greater than 50% in coordination of care (as documented) at patient's floor/unit and/or counseling patient: - Subjective Interval history: Patient seen earlier today. Was feeling better and had significant improvement in his pain. Was started on clear liquids per surgery recommendations. He then had a watery bowel movement and began to have severe abdominal pain rated 10 out of 10 in severity. He was then evaluated by surgery and taken to the OR - Constitutional Vitals: Temp Pulse Resp BP Pulse Ox 97.4 F L 64 21 125/77 97 09/11/17 11:13 09/11/17 11:13 09/11/17 11:13 09/11/17 11:13 09/11/17 11:13 General appearance: Present: cooperative, mild distress, A&O X 3, pleasant, answers questions appropriately - Neck Neck exam general surgery: Present: supple, trachea midline. Absent: lymphadenopathy - Respiratory Respiratory exam: Present: CTAB. Absent: accessory muscle use, rales, rhonchi, wheezes - Cardiovascular Cardiovascular exam: Present: RRR, +S1, +S2. Absent: diastolic murmur, gallop, rubs, systolic murmur - GI/Abdominal GI/Abdominal exam: Present: normal bowel sounds, soft, tenderness (Generalized) , no peritoneal signs. Absent: distended - Extremities Exam Extremities exam: Present: warm, radial pulses palpable and symmetrical. Absent : calf tenderness, cyanotic, pedal edema - Neurological Exam Neurological exam: Present: CN II-XII intact, oriented X3, no focal deficits. Absent: facial droop, speech deficit - Skin Skin exam: Present: dry, intact Internal Medicine: Result - Labs CBC & Chem 7: 09/11/17 04:48 09/11/17 04:48 Labs: Short CBC 09/11/17 Range/Units 04:48 WBC 12.1 H (4.3-11.1) K/mcL Hgb 13.9 (12.9-16.9) g/dL Hct 42.3 (37.5-50.1) % Plt Count 222 (140-400) K/mcL Neutrophils # 10.2 H (1.6-8.9) K/mcL BMP 09/11/17 04:48 Sodium 138 Potassium 3.9 Chloride 104 Carbon Dioxide 26 BUN 26 H Creatinine 1.39 H Glucose 96 Calcium 9.2 - ABG Interpretation ABG results: PT/INR, D-dimer PT 11.8 Seconds (9.4-12.1) 09/09/17 19:42 - VTE Documentation of Mechanical Device: Intermittent pneumatic compression device Consult Discharge Plan - Plan Referrals: Kevin Wheeler DO [Partnered Physician] - 10/14/17 9:00 am Elroy Pritchett Jr, MD [Primary Care Provider] -
[2017-09-11] MEDS ORDERED: Neostigmine Methylsulfate 3 MG/3 ML SYRINGE ONE (15:38)
[2017-09-11] MEDS ORDERED: *HR* Morphine 10 MG/ML VIAL ONE (15:39)
[2017-09-11] MEDS ORDERED: Ringers Solution, Lactated 1,000 ML IVC SCH ×2 (15:45→17:09)
--- NOTE | 2017-09-11 15:54 | Operative Note ---
Date of procedure: 09/11/17 Pre-op diagnosis: Perforated Viscus Post-op diagnosis: same Procedure: Robotic sigmoid resection with end colostomy Anesthesia: YARA Surgeon: Kevin Wheeler Was there an bilingual executive assistant present: No Estimated blood loss (cc): 25 Specimen: Sigmoid colon Condition: stable Disposition: floor Procedure in Detail: After informed consent, patient taken operating room placed supine position. After proper timeout a 12 mm cannula site was placed right superior to the umbilicus. Pneumoperitoneum was greater. A 13 mm cannula was placed in right lower quadrant. 5 mm camera was placed in the right upper quadrant. An 8 mm cannula was placed in subxiphoid region followed by another 8 mm in the left lower quadrant. Patient was placed in a headdown position. The robot was docked over the patient's left hip. Small bowel swept out of the pelvis. Rectosigmoid colon was then grasped and retracted cephalad. The peritoneum was then scored level of the sacral promontory. The left ureter was identified and kept on harm's way. The inferior mesenteric artery was then taken with a vessel sealer. The lateral rectosigmoid stalks were taken down the vessel sealer. The dissection was carried out down to the pelvic floor. The pelvic floor musculature was easily visualized. Rectosigmoid colon was dissected free from the retro-pubic tubercle region and the seminal vesicles were kept out of harm's way. Once it was freed a 45 mm robotic Endo staplers fired across the rectum. An opening was created in the left lateral abdominal wall for his end ostomy. Dissection was carried down to the fascia. This was incised with left cautery. The rectus muscles were then with Arabella clamp. The abdomen was entered. The distal rectosigmoid colon was grasped with an Allis and brought up through the abdominal wall. Once the colon was brought up through the abdominal wall and area that was felt to be normal was then chosen for the end ostomy. The colon was divided and the specimen was sent to pathology. The ostomy was then matured and sewn to the skin with 3-0 Vicryl suture to create a ho-chunk type ostomy. A 19-Turk[place] Lex drain was placed in the pelvis and it was secured to the skin. The 12 mm cannula site was closed with an 0 Vicryl suture. Skin yue were placed in all the incisions. At that point the procedure was terminated. He tolerated the procedure well.
--- NOTE | 2017-09-11 16:41 | Anesthesia Evaluation Post Op ---
Date of Encounter: 09/11/17 Time of Encounter: 16:40 - Vital Signs Vital Signs: Vital Signs/O2 Sat, Most Current Temp Pulse Resp BP Pulse Ox 101.3 F H 90 18 124/57 93 09/11/17 16:23 09/11/17 16:23 09/11/17 16:23 09/11/17 16:23 09/11/17 16:23 - Lungs Lungs: Clear Ascult./Percussion - Airway Airway: Non-obstructed - Cardiovascular Regular Rate - Mental Status Mental Status: Asleep with brisk response to light stimulation - Pain Pain Scale: 0 Pain Scale used: Numeric (1 - 10) - Nausea Vomiting Nausea Vomiting: Not Present - Hydration Hydration: NPO, Has not voided - Discharge PostOp Status: Transfer Patient to floor
[2017-09-11] MEDS ORDERED: Chlorhexidine Rinse 15 ML MOUTHWASH MM PRN (17:09)
[2017-09-11] MEDS ORDERED: Ondansetron ODT 4 MG TAB.RAPDIS SL PRN (17:09)
[2017-09-11] MEDS ORDERED: Naloxone 0.4 MG/ML INJ IVP PRN (17:09)
[2017-09-11] MEDS ORDERED: OXYCODONE Oral CONC 10 MG/0.5 ML ORAL.SYG SL PRN (17:09)
[2017-09-11] MEDS ORDERED: cloNIDine HCl 0.1 MG TABLET PO SCH (21:00)
[2017-09-11] MEDS ORDERED: CarBAMazepine XR (12 hr) 100 MG TAB PO SCH (21:00)
[2017-09-11] MEDS: *HR* Metoprolol 5 MG/5 ML VIAL IVP SCH ×2 (21:56→22:30)
[2017-09-11] MEDS: 0.9 % Sodium Chloride 1,000 ML IVC SCH (21:56)
[2017-09-11] MEDS ORDERED: Piperacillin/Tazobactam 3.375 GM in 0.9 % Sodium Chloride Mini Bag 100 ML IVPB SCH (23:00)
[2017-09-12] MEDS: *HR* Metoprolol 5 MG/5 ML VIAL IVP SCH ×4 (06:03→23:06)
[2017-09-12] MEDS: Piperacillin/Tazobactam 3.375 GM in 0.9 % Sodium Chloride Mini Bag 100 ML IVPB SCH ×3 (06:03→23:07)
[2017-09-12] MEDS: *HR* Heparin 5,000 UNIT/ML VIAL SQ SCH ×3 (08:19→23:06)
[2017-09-12] MEDS: Fluticasone Propionate Nasal 50 MCG/SPRAY BOTTLE NS SCH ×2 (08:21→08:24)
[2017-09-12] MEDS ORDERED: Aspirin Enteric Coated 325 MG Tablet PO SCH (09:00)
[2017-09-12] MEDS ORDERED: Folic Acid 1 MG TABLET PO SCH (09:00)
[2017-09-12] MEDS ORDERED: Fenofibrate 54 MG TABLET PO SCH (09:00)
[2017-09-12] MEDS ORDERED: CloNIDine Patch 0.2 MG PATCH (WEEKLY) TD SCH (09:00)
[2017-09-12 10:12] LABS: Hematocrit 37.7 % (37.5-50.1); Mean Corpuscular HGB Conc 32.6 g/dL (31.6-35.5); Mean Corpuscular Hemoglobin 28.3 pg (28.0-33.3); Mean Corpuscular Volume 86.9 fL (83.0-100.0); Mean Platelet Volume 10.8 fL (9.4-12.4); Platelet Count 220 K/mcL (140-400); Red Blood Count 4.34 M/mcL (4.19-5.50); Red Cell Distribution Width 13.8 % (11.5-14.5)
[2017-09-12 10:28] LABS: Hemoglobin 12.3 g/dL (12.9-16.9)
--- NOTE | 2017-09-12 10:34 | Internal Med Progress Note ---
Date of Encounter: 09/12/17 Time of Encounter: 08:30 - Assessment and plan (1) Perforation of sigmoid colon due to diverticulitis Current Visit: Yes Status: Acute Assessment and plan: Status post exploratory laparotomy with sigmoid resection and end colostomy. Postop day 1. Continue supportive care. IV fluids. Monitor vital signs. Follow surgery recommendations. (2) Hypertension Current Visit: Yes Status: Chronic Assessment and plan: Blood pressure is elevated this morning. We will place him on intravenous medications to control blood pressure better as patient is currently nothing by mouth. Qualifiers: Hypertension type: essential hypertension Qualified Code(s): I10 - Essential (primary) hypertension (3) Hyperlipidemia Current Visit: No Status: Chronic Assessment and plan: On Zocor and TriCor. Holding for nothing by mouth status Qualifiers: Hyperlipidemia type: unspecified Qualified Code(s): E78.5 - Hyperlipidemia , unspecified (4) Diabetes mellitus type 2 in nonobese Current Visit: Yes Status: Chronic Assessment and plan: Controlled at this time. Continue current insulin regimen (5) CAD (coronary artery disease) Current Visit: Yes Status: Chronic Assessment and plan: Continue aspirin when patient is able to take it. No chest pain at this time Qualifiers: Coronary Disease-Associated Artery/Lesion type: unspecified vessel or lesion type [place] vs. transplanted heart: [place] heart Associated angina: without angina Qualified Code(s): I25.10 - Atherosclerotic heart disease of [place] coronary artery without angina pectoris (6) ADELE on CPAP Current Visit: Yes Status: Chronic Assessment and plan: Use CPAP as needed (7) DVT prophylaxis Current Visit: Yes Status: Chronic Assessment and plan: Start subcutaneous heparin when okay with surgery. (8) PONCHO (acute kidney injury) Current Visit: Yes Status: Acute Assessment and plan: Stable. Creatinine 1.34 today. Patient may have underlying chronic kidney disease related to his diabetes and hypertension. - Time Spent With Patient Total time spent is greater than 50% in coordination of care (as documented) at patient's floor/unit and/or counseling patient: - Subjective Interval history: Patient is feeling better this morning. Has NG tube in place. Underwent surgery yesterday and recovering well. Pain is well controlled at this time. No bowel movements or flatus yet. - Constitutional Vitals: Temp Pulse Resp BP Pulse Ox 98.7 F 93 16 150/76 92 09/12/17 03:46 09/12/17 05:59 09/12/17 03:46 09/12/17 05:59 09/12/17 03:46 General appearance: Present: cooperative, mild distress, A&O X 3, pleasant, answers questions appropriately - ENT Additional comments: NG tube in place - Respiratory Respiratory exam: Present: CTAB. Absent: accessory muscle use, rales, rhonchi, wheezes - Cardiovascular Cardiovascular exam: Present: RRR, +S1, +S2. Absent: diastolic murmur, gallop, rubs, systolic murmur - GI/Abdominal GI/Abdominal exam: Present: normal bowel sounds, soft, no peritoneal signs. Absent: distended, tenderness Additional comments: Colostomy in place. - Extremities Exam Extremities exam: Present: warm, radial pulses palpable and symmetrical. Absent : calf tenderness, cyanotic, pedal edema - Neurological Exam Neurological exam: Present: alert, oriented X3, no focal deficits. Absent: facial droop, speech deficit - Skin Skin exam: Present: dry, intact Internal Medicine: Result - Labs CBC & Chem 7: 09/12/17 09:56 09/11/17 04:48 Labs: Short CBC 09/12/17 Range/Units 09:56 WBC 8.9 (4.3-11.1) K/mcL Hgb 12.3 L D (12.9-16.9) g/dL Hct 37.7 (37.5-50.1) % Plt Count 220 (140-400) K/mcL - ABG Interpretation ABG results: PT/INR, D-dimer PT 11.8 Seconds (9.4-12.1) 09/09/17 19:42 - VTE Documentation of Mechanical Device: Intermittent pneumatic compression device Consult Discharge Plan - Plan Referrals: Kevin Wheeler DO [Partnered Physician] - 10/14/17 9:00 am Elroy Pritchett Jr, MD [Primary Care Provider] -
[2017-09-12 10:35] LABS: BUN/Creatinine Ratio 17 (6-26); Blood Urea Nitrogen 23 mg/dL (8-23); Calcium 8.6 mg/dL (8.6-10.3); Carbon Dioxide 28 mEq/L (23-29); Chloride 106 mEq/L (98-107); Glucose 160 mg/dL (70-105); Osmolality,Calculated 297 (280-300); Potassium 3.7 mEq/L (3.5-5.1); Sodium 140 mEq/L (136-145); eGFR For African Americans > 60 (> 60); eGFR For Non-African Americans 53 (> 60)
--- NOTE | 2017-09-12 10:37 | General Surgery Progress Note ---
Date of Encounter: 09/12/17 Time of Encounter: 10:00 - Assessment and Plan (1) Perforation of sigmoid colon due to diverticulitis Current Visit: Yes Status: Acute POD #1 Robotic sigmoid resection with end colostomy with Dr. Summer NGUYEN while awaiting return of bowel function NG tube to LIWS Continue IV fluids Continue IV antibiotics- Zosyn, add Micofungin Supportive care and pain control IS every 1 hour while awake PPI therapy daily Ambulate hallways TID with assistance- july clamp NG for ambulation Ostomy education Continue LISHA drain- daily drain care Repeat am labs- (2) PONCHO (acute kidney injury) Current Visit: Yes Status: Acute Cr- 1.44>1.46>1.39>1.34 IV fluids Strict I&Os Avoid nephrotoxic medications Repeat am BMP (3) DVT prophylaxis Current Visit: Yes Status: Chronic Ambulate hallways TID with assistance EPCDs to bilateral lower extremities for DVT prophylaxis Heparin 5000 units SQ twice daily for DVT prophylaxis Subjective Patient reports: feels better, still having pain (post-surgical pain (different than before surgery)), pain is less, voiding w/o difficulty, no flatus, no bowel movement, afebrile Objective Vital Signs - Last 8 Hours Temp Pulse Resp BP Pulse Ox 09/12/17 05:59 93 150/76 09/12/17 03:46 98.7 F 94 16 139/90 92 Intake and Output 09/11/17 09/12/17 09/12/17 23:59 07:59 15:59 Intake Total 0 / 0 100 / 100 766 / 766 Output Total 175 / 175 420 / 420 640 / 640 Balance -175 / -175 -320 / -320 126 / 126 Intake: IV Fluids 100 / 100 766 / 766 0.9 % Sodium Chloride 1,000 ML 766 / 766 @ 75 mls/hr IVC .[id number] SHERI Rx #:[id number] Zosyn 3.375 GM In 0.9 % Sodium 100 / 100 Chloride (Mini-Bag +) 100 ML @ 25 mls/hr IVPB Q8H SHERI Rx#: [id number] Oral 0 / 0 0 / 0 0 / 0 Output: Urine 100 / 100 400 / 400 550 / 550 Stool 0 / 0 Gastric Drainage 0 / 0 Wound Drainage 75 / 75 20 / 20 90 / 90 Right Abdomen 40 / 40 20 / 20 90 / Other: Meal NPO Dinner NPO Percent of Meal Consumed 0% Blood Glucose* 163 146 - General physical appearance well developed, well nourished, moderate pain (surgical and back pain) - Eyes normal ocular movement - ENT dry mucosa, atraumatic, normocephalic - Neck Neck exam: trachea midline - Respiratory normal respiratory effort, clear to auscultation - Cardiovascular Cardiovascular exam: Present: RRR - Abdomen Abdomen: Present: soft, tender (expected post-operative tenderness), wound ( Ostomy is pink and moist with no flatus or stool at this time; NG to LIWS ( minimal output); LISHA drain to bulb suction with serousang. drainage noted ( approximately 140ml noted since midnight)) - Incision Incision: Present: clean and dry, intact - Neurologic CN 2-12 grossly intact - Psychiatric oriented to time, oriented to person, oriented to place, speech is normal, memory intact - Labs 09/12/17 09:56 09/12/17 09:56 Diabetes panel 09/12/17 Range/Units 09:56 Sodium 140 (136-145) mEq/L Potassium 3.7 (3.5-5.1) mEq/L Chloride 106 (98-107) mEq/L Carbon Dioxide 28 (23-29) mEq/L BUN 23 (8-23) mg/dL Creatinine 1.34 H (0.70-1.30) mg/dL Glucose 160 H (70-105) mg/dL Calcium 8.6 (8.6-10.3) mg/dL Calcium panel 09/12/17 Range/Units 09:56 Calcium 8.6 (8.6-10.3) mg/dL Pituitary panel 09/12/17 Range/Units 09:56 Sodium 140 (136-145) mEq/L Potassium 3.7 (3.5-5.1) mEq/L Chloride 106 (98-107) mEq/L Carbon Dioxide 28 (23-29) mEq/L BUN 23 (8-23) mg/dL Creatinine 1.34 H (0.70-1.30) mg/dL Glucose 160 H (70-105) mg/dL Calcium 8.6 (8.6-10.3) mg/dL Adrenal panel 09/12/17 Range/Units 09:56 Sodium 140 (136-145) mEq/L Potassium 3.7 (3.5-5.1) mEq/L Chloride 106 (98-107) mEq/L Carbon Dioxide 28 (23-29) mEq/L BUN 23 (8-23) mg/dL Creatinine 1.34 H (0.70-1.30) mg/dL Glucose 160 H (70-105) mg/dL Calcium 8.6 (8.6-10.3) mg/dL - VTE Documentation of Mechanical Device: Intermittent pneumatic compression device Consult Discharge Plan - Plan Referrals: Kevin Wheeler DO [Partnered Physician] - 10/14/17 9:00 am Elroy Pritchett Jr, MD [Primary Care Provider] - - Attending Attestation For this encounter, I have reviewed the BASIC COMBATANT SWIMMER or PA documentation, treatment plan, and medical decision making; and I have had face to face time with this patient.
[2017-09-12 11:26] LABS: Lymphocytes # 0.2 K/mcL (0.6-4.6); Monocytes # 0.4 K/mcL (0.0-1.3); Neutrophils # 8.4 K/mcL (1.6-8.9); Platelet Estimate Normal (Normal)
[2017-09-12 11:27] LABS: Anisocytosis 1+ (Not Present)
[2017-09-12] MEDS: 0.9 % Sodium Chloride 1,000 ML IVC SCH (11:43)
[2017-09-12] MEDS ORDERED: Acetaminophen IV 1,000 MG/100 ML INFUS..BTL IVPB SCH (12:00)
[2017-09-12] MEDS: Micafungin 100 MG in 0.9 % Sodium Chloride Mini Bag 100 ML IVPB SCH (12:19)
[2017-09-12] MEDS: Pantoprazole 40 MG VIAL IVP SCH (12:19)
[2017-09-12] MEDS: Acetaminophen IV 1,000 MG/100 ML INFUS..BTL IVPB SCH (20:25)
[2017-09-13] MEDS: 0.9 % Sodium Chloride 1,000 ML IVC SCH ×2 (01:56→15:37)
[2017-09-13] MEDS: Acetaminophen IV 1,000 MG/100 ML INFUS..BTL IVPB SCH ×4 (01:56→21:01)
[2017-09-13 02:35] LABS: Basophils % 0.2 %; Eosinophils % 0.5 %; Hematocrit 35.3 % (37.5-50.1); Hemoglobin 11.5 g/dL (12.9-16.9); Immature Granulocytes % 0.4 % (0-4); Lymphocytes # 0.5 K/mcL (0.6-4.6); Lymphocytes % 6.2 %; Mean Corpuscular HGB Conc 32.6 g/dL (31.6-35.5); Mean Corpuscular Hemoglobin 28.7 pg (28.0-33.3); Mean Platelet Volume 11.6 fL (9.4-12.4); Monocytes # 0.6 K/mcL (0.0-1.3); Monocytes % 7.9 %; Neutrophils # 6.8 K/mcL (1.6-8.9); Platelet Count 215 K/mcL (140-400); Red Blood Count 4.01 M/mcL (4.19-5.50); Red Cell Distribution Width 13.9 % (11.5-14.5); Segmented Neutrophils % 84.8 %
[2017-09-13 02:52] LABS: BUN/Creatinine Ratio 20 (6-26); Blood Urea Nitrogen 25 mg/dL (8-23); Calcium 8.4 mg/dL (8.6-10.3); Carbon Dioxide 26 mEq/L (23-29); Chloride 108 mEq/L (98-107); Glucose 118 mg/dL (70-105); Osmolality,Calculated 299 (280-300); Potassium 3.6 mEq/L (3.5-5.1); Sodium 142 mEq/L (136-145); eGFR For African Americans > 60 (> 60); eGFR For Non-African Americans 59 (> 60)
[2017-09-13 03:08] LABS: Platelet Estimate Normal (Normal)
[2017-09-13] MEDS: *HR* Metoprolol 5 MG/5 ML VIAL IVP SCH ×4 (06:12→23:26)
[2017-09-13] MEDS: Piperacillin/Tazobactam 3.375 GM in 0.9 % Sodium Chloride Mini Bag 100 ML IVPB SCH ×3 (06:12→23:26)
[2017-09-13] MEDS: Micafungin 100 MG in 0.9 % Sodium Chloride Mini Bag 100 ML IVPB SCH (08:24)
[2017-09-13] MEDS: Fluticasone Propionate Nasal 50 MCG/SPRAY BOTTLE NS SCH (08:24)
[2017-09-13] MEDS: Pantoprazole 40 MG VIAL IVP SCH (08:26)
[2017-09-13] MEDS: *HR* Heparin 5,000 UNIT/ML VIAL SQ SCH ×3 (09:45→21:01)
--- NOTE | 2017-09-13 11:48 | Internal Med Progress Note ---
Date of Encounter: 09/13/17 Time of Encounter: 08:30 - Assessment and plan (1) Perforation of sigmoid colon due to diverticulitis Current Visit: Yes Status: Acute Assessment and plan: Continue current management. Status post robotic-assisted sigmoid resection and colostomy. Postop day 2. Continue supportive care per surgery recommendations. Started on clear liquid diet today. Pain control. Monitor vital signs closely. On IV antibiotics. (2) Hypertension Current Visit: Yes Status: Chronic Assessment and plan: Blood pressure remains elevated. On IV metoprolol. We will resume oral medications if patient tolerating clear liquid diet. Continue to monitor blood pressure closely. Qualifiers: Hypertension type: essential hypertension Qualified Code(s): I10 - Essential (primary) hypertension (3) Hyperlipidemia Current Visit: No Status: Chronic Assessment and plan: Resume statin. Qualifiers: Hyperlipidemia type: unspecified Qualified Code(s): E78.5 - Hyperlipidemia , unspecified (4) Diabetes mellitus type 2 in nonobese Current Visit: Yes Status: Chronic Assessment and plan: Well-controlled. Will start sliding scale once patient starts eating. (5) CAD (coronary artery disease) Current Visit: Yes Status: Chronic Qualifiers: Coronary Disease-Associated Artery/Lesion type: unspecified vessel or lesion type [place] vs. transplanted heart: [place] heart Associated angina: without angina Qualified Code(s): I25.10 - Atherosclerotic heart disease of [place] coronary artery without angina pectoris (6) ADELE on CPAP Current Visit: Yes Status: Chronic Assessment and plan: CPAP as needed (7) DVT prophylaxis Current Visit: Yes Status: Chronic Assessment and plan: On subcutaneous heparin (8) PONCHO (acute kidney injury) Current Visit: Yes Status: Acute - Time Spent With Patient Total time spent is greater than 50% in coordination of care (as documented) at patient's floor/unit and/or counseling patient: - Subjective Interval history: Patient is awake and alert. Pain is well controlled in his abdomen. Passing flatus and has some stool in his colostomy bag. No fever or chills reported overnight. - Constitutional Vitals: Temp Pulse Resp BP Pulse Ox 97.4 F L 67 14 155/77 91 09/13/17 11:26 09/13/17 11:26 09/13/17 11:26 09/13/17 11:26 09/13/17 11:26 General appearance: Present: cooperative, mild distress, A&O X 3, pleasant, answers questions appropriately - ENT Additional comments: NG tube in place - Neck Neck exam general surgery: Present: supple, trachea midline. Absent: lymphadenopathy - Respiratory Respiratory exam: Present: CTAB. Absent: accessory muscle use, rales, rhonchi, wheezes - Cardiovascular Cardiovascular exam: Present: RRR, +S1, +S2. Absent: diastolic murmur, gallop, rubs, systolic murmur - GI/Abdominal GI/Abdominal exam: Present: distended, normal bowel sounds, soft, tenderness ( At surgical site.), no peritoneal signs Additional comments: Colostomy bag in place. Stool visible. - Extremities Exam Extremities exam: Present: warm, radial pulses palpable and symmetrical. Absent : calf tenderness, cyanotic, pedal edema - Neurological Exam Neurological exam: Present: alert, oriented X3, no focal deficits. Absent: facial droop, speech deficit - Skin Skin exam: Present: dry, intact Internal Medicine: Result - Labs CBC & Chem 7: 09/13/17 01:49 09/13/17 01:49 Labs: Short CBC 09/13/17 Range/Units 01:49 WBC 8.0 (4.3-11.1) K/mcL Hgb 11.5 L (12.9-16.9) g/dL Hct 35.3 L (37.5-50.1) % Plt Count 215 (140-400) K/mcL Neutrophils # 6.8 (1.6-8.9) K/mcL BMP 09/13/17 01:49 Sodium 142 Potassium 3.6 Chloride 108 H Carbon Dioxide 26 BUN 25 H Creatinine 1.23 Glucose 118 H Calcium 8.4 L - ABG Interpretation ABG results: PT/INR, D-dimer PT 11.8 Seconds (9.4-12.1) 09/09/17 19:42 - VTE Documentation of Mechanical Device: Intermittent pneumatic compression device Consult Discharge Plan - Plan Referrals: Kevin Wheeler DO [Partnered Physician] - 10/14/17 9:10 am Elroy Pritchett Jr, MD [Primary Care Provider] -
--- NOTE | 2017-09-13 13:47 | General Surgery Progress Note ---
Date of Encounter: 09/13/17 Time of Encounter: 10:30 - Assessment and Plan (1) Perforation of sigmoid colon due to diverticulitis Current Visit: Yes Status: Acute POD #2 robotic-assisted sigmoid resection and colostomy Advance to Clear liquid diet as tolerated Removed NG tube at bedside Ostomy care education was completed IV antibiotics - Zosyn Discussed with patient the risks of NSAID use with PONCHO (2) PONCHO (acute kidney injury) Current Visit: Yes Status: Acute Avoid nephrotoxic medications continue to monitor renal function (3) DVT prophylaxis Current Visit: Yes Status: Chronic Ambulate hallways TID with assistance EPCDs to bilateral lower extremities for DVT prophylaxis Subjective Patient reports: no new complaints, feels better, pain is less, voiding w/o difficulty Narrative: Pt states he is doing well. He was educated about his ostomy bag and feels prepared to care for it. Objective Vital Signs - Last 8 Hours Temp Pulse Resp BP Pulse Ox 09/13/17 11:26 97.4 F L 67 14 155/77 91 09/13/17 06:58 98.6 F 69 15 149/73 96 09/13/17 06:10 76 154/80 95 Intake and Output 09/12/17 09/13/17 09/13/17 23:59 07:59 15:59 Intake Total 200 / 200 1041 / 1041 950 / 950 Output Total 690 / 690 505 / 505 40 / 40 Balance -490 / -490 536 / 536 910 / 910 Intake: IV Fluids 200 / 200 1041 / 1041 950 / 950 0.9 % Sodium Chloride 1,000 ML 841 / 841 750 / 750 @ 75 mls/hr IVC .[id number] SHERI Rx #:[id number] Ofirmev 1,000 mg/100 ml 1,000 100 / 100 100 / 100 100 / 100 mg In 100 ml @ 400 mls/hr IVPB Q6H SHERI Rx#:[id number] Zosyn 3.375 GM In 0.9 % Sodium 100 / 100 100 / 100 100 / 100 Chloride (Mini-Bag +) 100 ML @ 25 mls/hr IVPB Q8H SHERI Rx#: [id number] Oral 0 / 0 0 / 0 Output: Urine 600 / 600 350 / 350 0 / 0 Stool 0 / 0 Gastric Drainage 125 / 125 Wound Drainage 90 / 90 30 / 30 40 / 40 Right Abdomen 90 / 90 30 / 30 40 / 40 Other: Meal NPO NPO BREAKFAST Percent of Meal Consumed 0% Weight 75.7 kg Blood Glucose* 130 104 Patient Weight 09/13/17 23:59 Weight 75.7 kg - General physical appearance well developed, well nourished, no distress, moderate pain - Eyes normal ocular movement - Neck Neck exam: no masses - Respiratory normal expansion, normal respiratory effort, clear to percussion, clear to auscultation - Cardiovascular Cardiovascular exam: Present: RRR, no murmurs/rubs/gallops - Abdomen Abdomen: Present: bowel sounds present, soft, tender (around incisions and ostomy) - Incision Incision: Present: clean and dry, intact - Integumentary no rash, no growths, no abnormal pigmentation - Neurologic normal coordination, normal sensation - Musculoskeletal normal posture - Psychiatric speech is normal, memory intact - Labs 09/13/17 01:49 09/13/17 01:49 Diabetes panel 09/13/17 Range/Units 01:49 Sodium 142 (136-145) mEq/L Potassium 3.6 (3.5-5.1) mEq/L Chloride 108 H (98-107) mEq/L Carbon Dioxide 26 (23-29) mEq/L BUN 25 H (8-23) mg/dL Creatinine 1.23 (0.70-1.30) mg/dL Glucose 118 H (70-105) mg/dL Calcium 8.4 L (8.6-10.3) mg/dL Calcium panel 09/13/17 Range/Units 01:49 Calcium 8.4 L (8.6-10.3) mg/dL Pituitary panel 09/13/17 Range/Units 01:49 Sodium 142 (136-145) mEq/L Potassium 3.6 (3.5-5.1) mEq/L Chloride 108 H (98-107) mEq/L Carbon Dioxide 26 (23-29) mEq/L BUN 25 H (8-23) mg/dL Creatinine 1.23 (0.70-1.30) mg/dL Glucose 118 H (70-105) mg/dL Calcium 8.4 L (8.6-10.3) mg/dL Adrenal panel 09/13/17 Range/Units 01:49 Sodium 142 (136-145) mEq/L Potassium 3.6 (3.5-5.1) mEq/L Chloride 108 H (98-107) mEq/L Carbon Dioxide 26 (23-29) mEq/L BUN 25 H (8-23) mg/dL Creatinine 1.23 (0.70-1.30) mg/dL Glucose 118 H (70-105) mg/dL Calcium 8.4 L (8.6-10.3) mg/dL - VTE Documentation of Mechanical Device: Intermittent pneumatic compression device Consult Discharge Plan - Plan Referrals: Kevin Wheeler DO [Partnered Physician] - 10/14/17 9:10 am Elroy Pritchett Jr, MD [Primary Care Provider] -
[2017-09-13] MEDS ORDERED: D5% in Water 1,000 ML IVC PRN (15:41)
[2017-09-13] MEDS ORDERED: Dextrose Gel 15 GM/37.5 ML TUBE PO PRN ×2 (15:41)
[2017-09-13] MEDS ORDERED: *HR* Dextrose 50 % in Water (Syg) 50 ML SYRINGE IVP PRN (15:41)
[2017-09-13] MEDS: Insulin LISPRO 300 UNITS/3 ML VIAL SQ SCH ×2 (17:20→21:01)
[2017-09-14] MEDS: Acetaminophen IV 1,000 MG/100 ML INFUS..BTL IVPB SCH ×4 (01:59→20:44)
[2017-09-14 02:15] LABS: Basophils % 0.3 %; Eosinophils # 0.3 K/mcL (0.0-0.6); Eosinophils % 4.6 %; Hematocrit 31.2 % (37.5-50.1); Hemoglobin 10.1 g/dL (12.9-16.9); Immature Granulocytes % 0.3 % (0-4); Lymphocytes # 0.7 K/mcL (0.6-4.6); Lymphocytes % 9.9 %; Mean Corpuscular HGB Conc 32.4 g/dL (31.6-35.5); Mean Corpuscular Hemoglobin 28.3 pg (28.0-33.3); Mean Corpuscular Volume 87.4 fL (83.0-100.0); Mean Platelet Volume 11.5 fL (9.4-12.4); Monocytes # 0.6 K/mcL (0.0-1.3); Monocytes % 8.1 %; Neutrophils # 5.7 K/mcL (1.6-8.9); Platelet Count 207 K/mcL (140-400); Red Blood Count 3.57 M/mcL (4.19-5.50); Red Cell Distribution Width 13.8 % (11.5-14.5); Segmented Neutrophils % 76.8 %
[2017-09-14 02:29] LABS: BUN/Creatinine Ratio 23 (6-26); Blood Urea Nitrogen 27 mg/dL (8-23); Calcium 8.1 mg/dL (8.6-10.3); Carbon Dioxide 26 mEq/L (23-29); Chloride 109 mEq/L (98-107); Glucose 138 mg/dL (70-105); Osmolality,Calculated 297 (280-300); Potassium 3.3 mEq/L (3.5-5.1); Sodium 140 mEq/L (136-145); eGFR For African Americans > 60 (> 60); eGFR For Non-African Americans > 60 (> 60)
[2017-09-14] MEDS: 0.9 % Sodium Chloride 1,000 ML IVC SCH ×2 (05:21→20:43)
[2017-09-14] MEDS: *HR* Metoprolol 5 MG/5 ML VIAL IVP SCH ×3 (06:10→17:45)
[2017-09-14] MEDS: Piperacillin/Tazobactam 3.375 GM in 0.9 % Sodium Chloride Mini Bag 100 ML IVPB SCH (06:39)
[2017-09-14] MEDS: Insulin LISPRO 300 UNITS/3 ML VIAL SQ SCH ×5 (08:05→20:51)
[2017-09-14] MEDS: Pantoprazole 40 MG VIAL IVP SCH (08:06)
[2017-09-14] MEDS: Micafungin 100 MG in 0.9 % Sodium Chloride Mini Bag 100 ML IVPB SCH (08:07)
[2017-09-14] MEDS: Fluticasone Propionate Nasal 50 MCG/SPRAY BOTTLE NS SCH (08:07)
[2017-09-14] MEDS: *HR* Heparin 5,000 UNIT/ML VIAL SQ SCH ×2 (09:40→21:01)
--- NOTE | 2017-09-14 10:24 | Internal Med Progress Note ---
Date of Encounter: 09/14/17 Time of Encounter: 08:30 - Assessment and plan (1) Perforation of sigmoid colon due to diverticulitis Current Visit: Yes Status: Acute Assessment and plan: Status post robotic-assisted sigmoid resection and end colostomy. Postop day 3. Tolerating clear liquids well. Passing stools. Follow up with surgery recommendations regarding advancing diet. Encouraged ambulation. (2) Hypertension Current Visit: Yes Status: Chronic Assessment and plan: Place patient back on metoprolol 50 mg twice daily. Blood pressure remains elevated. Continue lisinopril. Qualifiers: Hypertension type: essential hypertension Qualified Code(s): I10 - Essential (primary) hypertension (3) Hyperlipidemia Current Visit: Yes Status: Chronic Assessment and plan: Continue Lipitor Qualifiers: Hyperlipidemia type: unspecified Qualified Code(s): E78.5 - Hyperlipidemia , unspecified (4) Diabetes mellitus type 2 in nonobese Current Visit: Yes Status: Chronic Assessment and plan: Controlled. Continue current insulin regimen (5) CAD (coronary artery disease) Current Visit: Yes Status: Chronic Assessment and plan: Continue statin. Will place patient back on aspirin. Qualifiers: Coronary Disease-Associated Artery/Lesion type: unspecified vessel or lesion type [place] vs. transplanted heart: [place] heart Associated angina: without angina Qualified Code(s): I25.10 - Atherosclerotic heart disease of [place] coronary artery without angina pectoris (6) ADELE on CPAP Current Visit: Yes Status: Chronic Assessment and plan: Use CPAP as needed. (7) DVT prophylaxis Current Visit: Yes Status: Chronic Assessment and plan: On subcutaneous heparin. (8) PONCHO (acute kidney injury) Current Visit: Yes Status: Resolved Assessment and plan: Creatinine 1.16 today. Improved. - Time Spent With Patient Total time spent is greater than 50% in coordination of care (as documented) at patient's floor/unit and/or counseling patient: - Subjective Interval history: Patient continues to do well. Denies any chest pain or palpitations at this time. Having some abdominal cramps but controlled. Having stool in his colostomy bag. - Constitutional Vitals: Temp Pulse Resp BP Pulse Ox 97.7 F 66 14 168/78 93 09/14/17 07:36 09/14/17 07:36 09/14/17 07:36 09/14/17 07:36 09/14/17 07:36 General appearance: Present: cooperative, mild distress, A&O X 3, pleasant, answers questions appropriately - Neck Neck exam general surgery: Present: supple, trachea midline. Absent: lymphadenopathy - Respiratory Respiratory exam: Present: CTAB. Absent: accessory muscle use, rales, rhonchi, wheezes - Cardiovascular Cardiovascular exam: Present: RRR, +S1, +S2. Absent: diastolic murmur, gallop, rubs, systolic murmur - GI/Abdominal GI/Abdominal exam: Present: normal bowel sounds, soft, tenderness (At surgical site), no peritoneal signs. Absent: distended Additional comments: Colostomy bag in LISHA drain in place - Extremities Exam Extremities exam: Present: warm, radial pulses palpable and symmetrical. Absent : calf tenderness, cyanotic, pedal edema - Neurological Exam Neurological exam: Present: CN II-XII intact, oriented X3, no focal deficits. Absent: facial droop, speech deficit - Skin Skin exam: Present: dry, intact Internal Medicine: Result - Labs CBC & Chem 7: 09/14/17 01:21 09/14/17 01:21 Labs: Short CBC 09/14/17 Range/Units 01:21 WBC 7.4 (4.3-11.1) K/mcL Hgb 10.1 L (12.9-16.9) g/dL Hct 31.2 L (37.5-50.1) % Plt Count 207 (140-400) K/mcL Neutrophils # 5.7 (1.6-8.9) K/mcL BMP 09/14/17 01:21 Sodium 140 Potassium 3.3 L Chloride 109 H Carbon Dioxide 26 BUN 27 H Creatinine 1.16 Glucose 138 H Calcium 8.1 L - ABG Interpretation ABG results: PT/INR, D-dimer PT 11.8 Seconds (9.4-12.1) 09/09/17 19:42 - VTE Documentation of Mechanical Device: Intermittent pneumatic compression device Consult Discharge Plan - Plan Referrals: Kevin Wheeler DO [Partnered Physician] - 10/14/17 9:10 am Elroy Pritchett Jr, MD [Primary Care Provider] -
--- NOTE | 2017-09-14 14:50 | General Surgery Progress Note ---
Date of Encounter: 09/14/17 Time of Encounter: 12:30 - Assessment and Plan (1) Perforation of sigmoid colon due to diverticulitis Current Visit: Yes Status: Acute POD #2 robotic-assisted sigmoid resection and colostomy Advance to full liquid diet as tolerated Is continue IV Zosyn switched to by mouth Augmentin 875 twice a day Saline lock DVT prophylaxis Ostomy care Possible discharged tomorrow (2) PONCHO (acute kidney injury) Current Visit: Yes Status: Resolved Avoid nephrotoxic medications continue to monitor renal function (3) DVT prophylaxis Current Visit: Yes Status: Chronic Ambulate hallways TID with assistance EPCDs to bilateral lower extremities for DVT prophylaxis Subjective Patient reports: bowel movement Narrative: Patient stated he is doing better today than yesterday. His appetite is slowly increasing. He states he does not need to be much to be full. He states he notices bowel activity and had his his colostomy bag changed several times today. States there is only mild tenderness in his abdomen. Still feels weak but says each day he feels stronger. Objective Vital Signs - Last 8 Hours Temp Pulse Resp BP Pulse Ox 09/14/17 11:58 98.3 F 64 14 142/75 93 09/14/17 07:36 97.7 F 66 14 168/78 93 Intake and Output 09/13/17 09/14/17 09/14/17 23:59 07:59 15:59 Intake Total 840 / 840 1300 / 1300 1423 / 1423 Output Total 25 / 25 450 / 450 690 / 690 Balance 815 / 815 850 / 850 733 / 733 Intake: IV Fluids 200 / 200 1200 / 1200 823 / 823 0.9 % Sodium Chloride 1,000 ML 1000 / 1000 423 / 423 @ 75 mls/hr IVC .[id number] [facility] Rx #:[id number] Ofirmev 1,000 mg/100 ml 1,000 100 / 100 100 / 100 200 / 200 mg In 100 ml @ 400 mls/hr IVPB Q6H [facility] Rx#:[id number] Mycamine 100 MG In 0.9 % Sodium 100 / 100 Chloride (Mini-Bag +) 100 ML @ 100 mls/hr IVPB DAILY [facility] Rx#: [id number] Zosyn 3.375 GM In 0.9 % Sodium 100 / 100 100 / 100 100 / 100 Chloride (Mini-Bag +) 100 ML @ 25 mls/hr IVPB Q8H [facility] Rx#: [id number] Oral 640 / 640 100 / 100 600 / 600 Output: Urine 0 / 0 300 / 300 400 / 400 Stool 125 / 125 250 / 250 Gastric Drainage 0 / 0 Wound Drainage 25 / 25 25 / 25 40 / 40 Right Abdomen / 25 / 25 40 / 40 Other: Meal clears Breakfast Percent of Meal Consumed 50% Stool Consistency liquid Stool Color Brown Weight 75.6 kg Blood Glucose* 147 110 149 Patient Weight 09/14/17 23:59 Weight 75.6 kg - General physical appearance well developed, well nourished, no distress - Eyes normal ocular movement - ENT normal mucosa - Respiratory normal expansion, normal respiratory effort, clear to percussion, clear to auscultation - Cardiovascular Cardiovascular exam: Present: RRR, no murmurs/rubs/gallops - Abdomen Abdomen: Present: bowel sounds present, soft, tender (slightly) - Incision Incision: Present: clean and dry, intact - Integumentary no rash, no growths, no abnormal pigmentation - Neurologic normal coordination, normal sensation - Musculoskeletal normal gait, normal posture - Psychiatric oriented to time, oriented to person, oriented to place, speech is normal, memory intact - Labs 09/14/17 01:21 09/14/17 01:21 Diabetes panel 09/14/17 Range/Units 01:21 Sodium 140 (136-145) mEq/L Potassium 3.3 L (3.5-5.1) mEq/L Chloride 109 H (98-107) mEq/L Carbon Dioxide 26 (23-29) mEq/L BUN 27 H (8-23) mg/dL Creatinine 1.16 (0.70-1.30) mg/dL Glucose 138 H (70-105) mg/dL Calcium 8.1 L (8.6-10.3) mg/dL Calcium panel 09/14/17 Range/Units 01:21 Calcium 8.1 L (8.6-10.3) mg/dL Pituitary panel 09/14/17 Range/Units 01:21 Sodium 140 (136-145) mEq/L Potassium 3.3 L (3.5-5.1) mEq/L Chloride 109 H (98-107) mEq/L Carbon Dioxide 26 (23-29) mEq/L BUN 27 H (8-23) mg/dL Creatinine 1.16 (0.70-1.30) mg/dL Glucose 138 H (70-105) mg/dL Calcium 8.1 L (8.6-10.3) mg/dL Adrenal panel 09/14/17 Range/Units 01:21 Sodium 140 (136-145) mEq/L Potassium 3.3 L (3.5-5.1) mEq/L Chloride 109 H (98-107) mEq/L Carbon Dioxide 26 (23-29) mEq/L BUN 27 H (8-23) mg/dL Creatinine 1.16 (0.70-1.30) mg/dL Glucose 138 H (70-105) mg/dL Calcium 8.1 L (8.6-10.3) mg/dL - VTE Documentation of Mechanical Device: Intermittent pneumatic compression device Consult Discharge Plan - Plan Referrals: Kevin Wheeler DO [Partnered Physician] - 10/14/17 9:10 am Elroy Pritchett Jr, MD [Primary Care Provider] -
[2017-09-15] MEDS: Acetaminophen IV 1,000 MG/100 ML INFUS..BTL IVPB SCH ×3 (01:05→15:12)
[2017-09-15] MEDS: *HR* Metoprolol 5 MG/5 ML VIAL IVP SCH ×2 (01:05→05:07)
[2017-09-15] MEDS: Insulin LISPRO 300 UNITS/3 ML VIAL SQ SCH ×2 (07:56→11:24)
[2017-09-15] MEDS: *HR* Heparin 5,000 UNIT/ML VIAL SQ SCH (08:18)
[2017-09-15] MEDS: Pantoprazole 40 MG VIAL IVP SCH (08:18)
[2017-09-15] MEDS: Fluticasone Propionate Nasal 50 MCG/SPRAY BOTTLE NS SCH (08:21)
[2017-09-15 08:26] LABS: BUN/Creatinine Ratio 21 (6-26); Blood Urea Nitrogen 21 mg/dL (8-23); Carbon Dioxide 23 mEq/L (23-29); Chloride 109 mEq/L (98-107); Glucose 109 mg/dL (70-105); Osmolality,Calculated 292 (280-300); Potassium 3.5 mEq/L (3.5-5.1); Sodium 139 mEq/L (136-145); eGFR For African Americans > 60 (> 60); eGFR For Non-African Americans > 60 (> 60)
[2017-09-15 08:31] LABS: Basophils % 0.5 %; Eosinophils # 0.4 K/mcL (0.0-0.6); Eosinophils % 6.2 %; Hematocrit 35.3 % (37.5-50.1); Hemoglobin 11.5 g/dL (12.9-16.9); Immature Granulocytes % 0.8 % (0-4); Lymphocytes # 0.5 K/mcL (0.6-4.6); Lymphocytes % 8.6 %; Mean Corpuscular HGB Conc 32.6 g/dL (31.6-35.5); Mean Corpuscular Hemoglobin 28.5 pg (28.0-33.3); Mean Corpuscular Volume 87.6 fL (83.0-100.0); Mean Platelet Volume 11.2 fL (9.4-12.4); Monocytes # 0.6 K/mcL (0.0-1.3); Monocytes % 10.1 %; Neutrophils # 4.4 K/mcL (1.6-8.9); Platelet Count 241 K/mcL (140-400); Red Blood Count 4.03 M/mcL (4.19-5.50); Segmented Neutrophils % 73.8 %
[2017-09-15] MEDS ORDERED: Aspirin Enteric Coated 81 MG Tablet PO SCH (09:00)
[2017-09-15] MEDS ORDERED: cloNIDine HCl 0.1 MG TABLET PO SCH (09:00)
--- NOTE | 2017-09-15 12:33 | Discharge Summary ---
Orders not resulted at time of discharge: Pending orders 09/11/17 15:43 Surgical Pathology [PTH] Routine Date of Encounter: 09/15/17 Time of Encounter: 12:00 - Discharge Diagnosis (1) Perforation of sigmoid colon due to diverticulitis Priority: Primary Status: Resolved (2) PONCHO (acute kidney injury) Priority: Secondary Status: Resolved General Surgery Exam Initial Vital Signs Temp Pulse Resp BP Pulse Ox 98.9 F 91 18 144/75 94 09/09/17 19:25 09/09/17 19:25 09/09/17 19:25 09/09/17 19:25 09/09/17 19:25 - General physical appearance well developed, well nourished, no distress - ENT normal mucosa, atraumatic, normocephalic - Neck trachea midline - Respiratory normal respiratory effort, clear to auscultation - Cardiovascular Cardiovascular exam: Present: RRR - Abdomen Abdomen general surgery: Present: bowel sounds present, soft, tender (Expected postoperative discomfort), wound (LISHA drain with serous drainage noted; ostomy pink and moist with liquid stool noted) - Incision Incision: Present: clean and dry, intact - Integumentary Integumentary general surgery: Present: warm and dry - Neurologic Present: CN 2-12 grossly intact - Psychiatric Psychiatric general surgery: Present: A&Ox3 - Hospital Course Hospital course: Mr. Mohan is a 66 year old male who was admitted to the hospital with a perforated sigmoid diverticulitis. He was treated with conservative measures which she ultimately failed. He was taken to the operating room on 09/11/[address] Wheeler for a robotic-assisted sigmoid resection and end colostomy. The patient was continued on IV antibiotic therapy. He was maintained on bowel rest while awaiting return of bowel function. With return of bowel function, his NG tube was removed. He was started on a liquid diet and advanced as tolerated. He is currently tolerating a regular diet without difficulty. He is having regular bowel function via his colostomy. The patient's laboratory values are trending to normal. His vital signs are stable and he is afebrile. His pain is well-controlled. He has been maintained on DVT and GI prophylaxis. He has received ostomy education during his stay. We will begin discharge planning to home on oral antibiotics and with his LISHA drain in place. We will plan on follow-up in 1 week for drain removal. - Time Spent with Patient Total time spent providing and/or coordinating discharge services: Less than 30 minutes - Discharge Medications Prescriptions: Ondansetron ODT [Zofran ODT] 4 mg SL Q6HR PRN #30 tab.rapdis PRN Reason: Nausea OxyCODONE/APAP 5/325 [Percocet 5/325 MG] 1 each PO Q6HR PRN 5 Days #20 tablet PRN Reason: Pain Amoxicillin/Clavulanate [Augmentin] 875 mg PO BIDWM #14 tablet Docusate [Colace] 100 mg PO BID PRN #30 capsule PRN Reason: Constipation Home Medications: Aspirin [Ecotrin] 325 mg PO DAILY 09/09/17 [History] CarBAMazepine [Carbamazepine ER] 200 mg PO BID 09/09/17 [History] Chlorhexidine Gluconate [Periogard] 15 ml MM BID PRN 09/09/17 [History] Fenofibrate [Tricor] 54 mg PO DAILY 09/09/17 [History] Fluticasone Propionate Nasal [Flonase] 1 spray NS DAILY 09/09/17 [History] Folic Acid 1 mg PO DAILY 09/09/17 [History] Metoprolol Tartrate 50 mg PO BID 09/09/17 [History] Nitroglycerin [Nitrostat] 0.4 mg SL Q5M PRN 09/09/17 [History] Simvastatin [Zocor] 80 mg PO DAILY 09/09/17 [History] Triamterene/Hydrochlorothiazid [Dyazide 37.5-25 Capsule] 1 cap PO DAILY [History] Vitamin E (Dl,Tocopheryl Acet) [Vitamin E] 400 unit PO DAILY 09/09/17 [History] cloNIDine HCl [CloNIDine HCl] 0.1 mg PO BID 09/09/17 [History] Amoxicillin/Clavulanate [Augmentin] 875 mg PO BIDWM #14 tablet 09/15/17 [Rx] Docusate [Colace] 100 mg PO BID PRN #30 capsule 09/15/17 [Rx] Ondansetron ODT [Zofran ODT] 4 mg SL Q6HR PRN #30 tab.rapdis 09/15/17 [Rx] OxyCODONE/APAP 5/325 [Percocet 5/325 MG] 1 each PO Q6HR PRN 5 Days #20 tablet [Rx] Allergies/Adverse Reactions: 3 Allergy/AdvReac Type Severity Reaction Status Date / Time honey suckle Allergy Congested Uncoded 01/20/16 08:15 Date of admission: 09/09/17 22:41 Primary care physician: Elroy Pritchett Jr, MD Consults: 09/09/17 23:01 Consult to Surgery [CONS] Routine Consulting Provider: Kevin Wheeler Reason for Consult: Pneumoperitoneum, perforated sigmoid diverticulitis Time Notified: 23:04 Call Completed: Yes 09/12/17 11:15 Consult to Wound Care [CONS] Stat Reason for Consult: New colostomy- provide videos to watch over the weekend Time Notified: 11:16 Call Completed: Yes [facility] Anticipated date of discharge: 09/15/17 Labs on day of discharge: Labs from last 24 hours 09/15/17 09/15/17 09/15/17 11:10 07:45 07:45 WBC 6.0 RBC 4.03 L Hgb 11.5 L Hct 35.3 L MCV 87.6 MCH 28.5 MCHC 32.6 RDW 14.0 Plt Count 241 MPV 11.2 Immature Gran % 0.8 Seg Neutrophils % 73.8 Lymphocytes % 8.6 Monocytes % 10.1 Eosinophils % 6.2 Basophils % 0.5 Neutrophils # 4.4 Lymphocytes # 0.5 L Monocytes # 0.6 Eosinophils # 0.4 Basophils # 0.0 Sodium 139 Potassium 3.5 Chloride 109 H Carbon Dioxide 23 BUN 21 Creatinine 0.98 Est GFR ( Amer) > 60 Est GFR (Non-Af Amer) > 60 BUN/Creatinine Ratio 21 Glucose 109 H POC Glucose 123 H Calculated Osmolality 292 Calcium 8.0 L 09/15/17 09/14/17 09/14/17 07:06 20:45 16:45 WBC RBC Hgb Hct MCV MCH MCHC RDW Plt Count MPV Immature Gran % Seg Neutrophils % Lymphocytes % Monocytes % Eosinophils % Basophils % Neutrophils # Lymphocytes # Monocytes # Eosinophils # Basophils # Sodium Potassium Chloride Carbon Dioxide BUN Creatinine Est GFR ( Amer) Est GFR (Non-Af Amer) BUN/Creatinine Ratio Glucose POC Glucose 112 H 157 H 129 H Calculated Osmolality Calcium - Patient Status Disposition: Home, Self-Care Condition: Good Functional capacity at discharge: independent ambulation Overall status at discharge: patient is progressing back to baseline - Discharge Instructions Follow Up With: Kevin Wheeler DO [Partnered Physician] - 10/14/17 9:10 am Elroy Pritchett Jr, MD [Primary Care Provider] - Forms: ED Satisfaction Letter, Work/School Release Additional Instructions: #1 may shower, no tub bath for 2 weeks #2 wash incisions with soap and water and pat dry daily #3 no lifting, pushing, pulling more than 15 pounds for the next 4 weeks #4 no driving until off narcotics for 24 hours and able to safely react in the car #5 may climb stairs LISHA drain- cleanse around the drain was soap and water in the shower daily and then pat dry, apply split 4 x 4 gauze and tape to secure daily. Empty drain 2- 3 times per day and as needed. Record outputs on drain record and bring to follow-up appointment next week. Ostomy care- change appliance every 5-7 days and as needed if leaking. Empty bag when one third full and as needed. - Diet and Activity Activity: other (See additional instructions above) - Attending Attestation For this encounter, I have reviewed the [employer] SALES CONSULTANT or PA documentation, treatment plan, and medical decision making; and I have had face to face time with this patient.
--- NOTE | 2017-09-15 14:03 | Internal Med Progress Note ---
Date of Encounter: 09/15/17 Time of Encounter: 08:30 - Assessment and plan (1) Perforation of sigmoid colon due to diverticulitis Current Visit: Yes Status: Resolved Assessment and plan: Status process robotic-assisted sigmoid resection and end colostomy. Doing well from surgical point standpoint. Transition to oral antibiotics. We will stop IV fluids. (2) Hypertension Current Visit: Yes Status: Chronic Assessment and plan: Blood pressure elevated today. Will DC clonidine patch and place him back on oral clonidine. Increase metoprolol dosage back to 50 mg twice daily. May also resume his Maxzide Qualifiers: Hypertension type: essential hypertension Qualified Code(s): I10 - Essential (primary) hypertension (3) Hyperlipidemia Current Visit: Yes Status: Chronic Assessment and plan: Continue statin Qualifiers: Hyperlipidemia type: unspecified Qualified Code(s): E78.5 - Hyperlipidemia , unspecified (4) Diabetes mellitus type 2 in nonobese Current Visit: Yes Status: Chronic Assessment and plan: Well-controlled (5) CAD (coronary artery disease) Current Visit: Yes Status: Chronic Assessment and plan: Continue aspirin, statin and beta halle Qualifiers: Coronary Disease-Associated Artery/Lesion type: unspecified vessel or lesion type [place] vs. transplanted heart: marshall heart Associated angina: without angina Qualified Code(s): I25.10 - Atherosclerotic heart disease of [place] coronary artery without angina pectoris (6) ADELE on CPAP Current Visit: Yes Status: Chronic Assessment and plan: Use CPAP at night (7) DVT prophylaxis Current Visit: Yes Status: Chronic (8) PONCHO (acute kidney injury) Current Visit: Yes Status: Resolved - Time Spent With Patient Total time spent is greater than 50% in coordination of care (as documented) at patient's floor/unit and/or counseling patient: - Subjective Interval history: Patient continues to improve. Abdominal pain is well controlled. No nausea or vomiting. Continues to have stool in his colostomy bag. - Constitutional Vitals: Temp Pulse Resp BP Pulse Ox 98.1 F 63 16 173/80 93 09/15/17 10:38 09/15/17 10:38 09/15/17 10:38 09/15/17 10:38 09/15/17 10:38 General appearance: Present: cooperative, mild distress, A&O X 3, pleasant, answers questions appropriately - Respiratory Respiratory exam: Present: CTAB. Absent: accessory muscle use, rales, rhonchi, wheezes - Cardiovascular Cardiovascular exam: Present: RRR, +S1, +S2. Absent: diastolic murmur, gallop, rubs, systolic murmur - GI/Abdominal GI/Abdominal exam: Present: normal bowel sounds, soft, tenderness (Surgical site ), no peritoneal signs. Absent: distended Additional comments: Colostomy bag in place - Extremities Exam Extremities exam: Present: warm, radial pulses palpable and symmetrical. Absent : calf tenderness, cyanotic, pedal edema Internal Medicine: Result - Labs CBC & Chem 7: 09/15/17 07:45 09/15/17 07:45 Labs: Short CBC 09/15/17 Range/Units 07:45 WBC 6.0 (4.3-11.1) K/mcL Hgb 11.5 L (12.9-16.9) g/dL Hct 35.3 L (37.5-50.1) % Plt Count 241 (140-400) K/mcL Neutrophils # 4.4 (1.6-8.9) K/mcL BMP 09/15/17 07:45 Sodium 139 Potassium 3.5 Chloride 109 H Carbon Dioxide 23 BUN 21 Creatinine 0.98 Glucose 109 H Calcium 8.0 L - ABG Interpretation ABG results: PT/INR, D-dimer PT 11.8 Seconds (9.4-12.1) 09/09/17 19:42 - VTE Documentation of Mechanical Device: Intermittent pneumatic compression device Consult Discharge Plan - Plan Additional Instructions: #1 may shower, no tub bath for 2 weeks #2 wash incisions with soap and water and pat dry daily #3 no lifting, pushing, pulling more than 15 pounds for the next 4 weeks #4 no driving until off narcotics for 24 hours and able to safely react in the car #5 may climb stairs LISHA drain- cleanse around the drain was soap and water in the shower daily and then pat dry, apply split 4 x 4 gauze and tape to secure daily. Empty drain 2- 3 times per day and as needed. Record outputs on drain record and bring to follow-up appointment next week. Ostomy care- change appliance every 5-7 days and as needed if leaking. Empty bag when one third full and as needed. Referrals: Kevin Wheeler DO [Partnered Physician] - 10/14/17 9:10 am Elroy Pritchett Jr, MD [Primary Care Provider] - Prescriptions: Ondansetron ODT [Zofran ODT] 4 mg SL Q6HR PRN #30 tab.rapdis PRN Reason: Nausea OxyCODONE/APAP 5/325 [Percocet 5/325 MG] 1 each PO Q6HR PRN 5 Days #20 tablet PRN Reason: Pain Amoxicillin/Clavulanate [Augmentin] 875 mg PO BIDWM #14 tablet Docusate [Colace] 100 mg PO BID PRN #30 capsule PRN Reason: Constipation
[2017-09-15 14:40] VITALS: BP 171/78
== END 2017-09-15 16:34 | disposition home or self-care (01) | DRG 330 ==
LOC: EMEROO 19:14 → SUATTDRO 22:41 → ICNU 22:41 → 2ANU 09-10 12:16 → 3ANU 09-11 16:26
PROVIDERS: ADMIT Pediatrics; ATTEND Internal Medicine

== ENCOUNTER 2017-11-28 08:50 | Inpatient (IN) ==
[2017-11-28] MEDS ORDERED: Celecoxib 100 MG CAPSULE PO ONE (09:17)
[2017-11-28] MEDS ORDERED: Acetaminophen IV 1,000 MG/100 ML INFUS..BTL IVPB ONE (09:17)
[2017-11-28] MEDS ORDERED: Famotidine 20 MG/2 ML VIAL IVP ONE (09:17)
[2017-11-28] MEDS ORDERED: Albuterol 2.5 MG/3 ML NEBULIZER IH ONE (09:20)
[2017-11-28] MEDS ORDERED: cefOXitin 2,000 MG in Water for inj. (sterile) 20 ML 20 ML IVP ONE (09:20)
[2017-11-28] MEDS ORDERED: Ringers Solution, Lactated 1,000 ML IVC SCH (09:30)
--- NOTE | 2017-11-28 09:36 | Anesthesia Evaluation PreOp ---
Date of Encounter: 11/28/17 Time of Encounter: 09:35 - Past History Planned Operation: Robotic Lap Takedown Colostomy Cardiac History: HTN, Hyperlipidemia Pulmonary History: Former smoker FRONT OFFICE MANAGER History: Denies Any Significant HX Other Medical History: Diabetes Type II Anesthesia History: No Prior Anesthetic Complications Alcohol Use: rarely Drug use: none Medications and Allergies Aspirin [Ecotrin] 325 mg PO DAILY 09/09/17 [History] Chlorhexidine Gluconate [Periogard] 15 ml MM BID PRN 09/09/17 [History] Fenofibrate [Tricor] 54 mg PO DAILY 09/09/17 [History] Fluticasone Propionate Nasal [Flonase] 1 spray NS DAILY 09/09/17 [History] Folic Acid 1 mg PO DAILY 09/09/17 [History] Metoprolol Tartrate 50 mg PO BID 09/09/17 [History] Nitroglycerin [Nitrostat] 0.4 mg SL Q5M PRN 09/09/17 [History] Simvastatin [Zocor] 80 mg PO DAILY 09/09/17 [History] Triamterene/Hydrochlorothiazid [Dyazide 37.5-25 Capsule] 1 cap PO DAILY [History] Vitamin E (Dl,Tocopheryl Acet) [Vitamin E] 400 unit PO DAILY 09/09/17 [History] carBAMazepine [Carbamazepine ER] 200 mg PO BID 09/09/17 [History] cloNIDine HCl [CloNIDine HCl] 0.1 mg PO BID 09/09/17 [History] Amoxicillin/Clavulanate [Augmentin] 875 mg PO BIDWM #14 tablet 09/15/17 [Rx] Docusate [Colace] 100 mg PO BID PRN #30 capsule 09/15/17 [Rx] Ondansetron ODT [Zofran ODT] 4 mg SL Q6HR PRN #30 tab.rapdis 09/15/17 [Rx] OxyCODONE/APAP 5/325 [Percocet 5/325 MG] 1 each PO Q6HR PRN 5 Days #20 tablet [Rx] 3 Allergy/AdvReac Type Severity Reaction Status Date / Time honey suckle Allergy Congested Uncoded 01/20/16 08:15 - Meds/Allergy Pre-op Review Medications Reviewed: Yes Allergies Reviewed: Yes Beta Blockers on Current Med List: No Anesthesia Results - Labs Laboratory Tests 09/15/17 11/14/17 11/14/17 07:45 14:48 14:48 Hgb 13.0 Hct 40.3 Plt Count 246 Sodium 139 Potassium 4.0 BUN 21 Creatinine 1.22 Hemoglobin A1c 11/14/17 14:48 Hgb Hct Plt Count Sodium Potassium BUN Creatinine Hemoglobin A1c 6.1 H - Imaging EKG: report reviewed (SR) Additional studies: Stress Test Negative for ischemia Anesthesia Exam O2 Sat Height 1.78 m Height 1.78 m Weight 73.936 kg Weight 73.936 kg O2 Sat by Pulse Oximetry 98 Vital Signs Temp Pulse Resp BP Pulse Ox 98.5 F 67 18 176/93 98 11/28/17 09:18 11/28/17 09:18 11/28/17 09:18 11/28/17 09:18 11/28/17 09:18 Height: 5'10 Weight: 163 lbs NPO (# of Hours): MN Pain Scale: 0 - HEENT Pupil (Motor): Pupils equal, EOMI Teeth: Normal Oral Opening: Less than or equal to 3 - FRONT OFFICE MANAGER LOC: Oriented FRONT OFFICE MANAGER Motor: Normal RUE, Normal LUE, Normal RLE, Normal LLE, Normal Face FRONT OFFICE MANAGER Sensory: Normal: RUE, LUE, RLE, LLE, Face - Cardiac Rhythm: Regular Murmur: None JVD: No Carotid Bruit: No - Pulmonary Breath Sounds: bilateral Clear Respiratory Effort: Symmetrical Anesthesia Assess/Plan ASA Score: 2 Modified Jerusalem Scale for Level of Consciousness: Cooperative, oriented, and tranquil Anesthetic Plan: General Monitoring Plan: Standard Monitors Recovery Plan: PACU (Discussed GA, agrees to proceed)
--- NOTE | 2017-11-28 10:14 | History & Physical Report ---
Date of Encounter: 11/28/17 Time of Encounter: 10:14 24 Hour HP Update - Instructions Instructions: If the History and Physical is less than 30 days old and was completed prior to A.M. admission and or procedure and has NOT been updated on calendar day of procedure please complete this update prior to performing procedure. - Update Patient reports changes in Medical Condition: No Changes in examination, assessment, or condition: No Changes in Medication: No Preop tests/diagnostics Reviewed: Yes Surgery Remains Indicated: Yes Consent for Planned Operative Procedure(s) Verified: Yes - Pre-Operative Checklist Preoperative Checklist Indicated: Yes Prophylactic Antibiotic Ordered: Yes Home Medications Include Beta Ragini: No
[2017-11-28] MEDS ORDERED: Neostigmine Methylsulfate 3 MG/3 ML SYRINGE ONE (10:31)
[2017-11-28] MEDS ORDERED: *HR* Rocuronium Bromide 50 MG/5 ML VIAL ONE (10:31)
[2017-11-28] MEDS ORDERED: *HR* Succinylcholine 200 MG/10 ML VIAL IVP ONE (10:31)
[2017-11-28] MEDS ORDERED: Lidocaine -MPF 4% 5 ML AMPUL ONE (10:31)
[2017-11-28] MEDS ORDERED: Lidocaine -MPF 2% 2 ML VIAL ONE (10:31)
[2017-11-28] MEDS ORDERED: Ondansetron 4 MG/2 ML VIAL ONE (10:31)
[2017-11-28] MEDS ORDERED: Dexamethasone 4 MG/ML VIAL ONE (10:31)
[2017-11-28] MEDS ORDERED: *HR* Propofol 200 MG/20 ML VIAL IVP ONE (10:32)
[2017-11-28] MEDS ORDERED: *HR* FentaNYL (PF) 100 MCG/2 ML VIAL ONE (10:32)
[2017-11-28] MEDS ORDERED: *HR* Midazolam HCl 2 MG/2 ML VIAL ONE (10:32)
[2017-11-28] MEDS ORDERED: EPHEDrine 50 MG/ML VIAL ONE (11:08)
[2017-11-28] MEDS ORDERED: Esmolol 100 MG/10 ML VIAL IVP ONE (11:56)
[2017-11-28] MEDS ORDERED: *HR* Labetalol 20 MG/4 ML SYRINGE IVP PRN (12:30)
[2017-11-28] MEDS ORDERED: *HR* Promethazine 25 MG/ML VIAL IVP PRN (12:30)
[2017-11-28] MEDS ORDERED: *HR* HYDROmorphone (PF) 1 MG/ML SYRINGE IVP PRN (12:30)
[2017-11-28] MEDS ORDERED: *HR* Morphine 10 MG/ML VIAL ONE (12:55)
--- NOTE | 2017-11-28 13:02 | Operative Note ---
Date of procedure: 11/28/17 Pre-op diagnosis: History of diverticulitis Post-op diagnosis: same Procedure: Robotic takedown of colostomy and lysis of adhesions 35 minutes Anesthesia: YARA Surgeon: eKvin Wheeler Was there an assistant store leader present: Yes Rubber Heel And Sole Press Tender: Henna Byrd Estimated blood loss (cc): 10 Specimen: Anastomotic rings Condition: stable Disposition: same day Procedure in Detail: After informed consent, patient was taken the operating room placed in the supine position. After adequate sedation and anesthesia the abdomen was prepped and draped. The patient was placed in lithotomy position. The end colostomy was taken down with cautery. Once it was fully dissected free the end of the ostomy was resected with sharp dissection. It was sized to a 29 mm anvil. This was placed in a pursestring suture was inserted. Once it was tied and secured the distal descending and sigmoid colons were placed into the abdomen. The fascial defect was closed with loop PDS suture in running fashion. There were 3 individual robotic ports placed in the upper right half of the abdomen. Once in place pneumoperitoneum was created. Patient was placed and Trendelenburg at approximately 19 degrees. The small bowel swept out of the pelvis. However there were multiple adhesions identified and these were taken down with sharp dissection. The lysis of adhesions lasted approximately 35 minutes. Once completed the proximal rectum was dissected free out of the pelvis. A stapling device was placed into the rectum and the spear was brought out through the staple line. This was connected to the anvil tightened and secured. This was fired. There were 2 excellent donuts. The anterior aspect of the anastomosis was imbricated and secured with 2-0 silk suture 3. A leak test was performed. The leak test was negative. The pelvis was suctioned dry again and the edge rotation was removed as was the 2 needles. The pneumoperitoneum was evacuated. The fascia was closed with 0 Vicryl suture and the skin was closed with clips. Patient tolerated the procedure well.
--- NOTE | 2017-11-28 13:44 | Anesthesia Evaluation Post Op ---
Date of Encounter: 11/28/17 Time of Encounter: 13:45 - Vital Signs Vital Signs: Vital Signs/O2 Sat/Glucose, Most Current Temp Pulse Resp BP Pulse Ox 11/28/17 13:35 97.9 F 71 16 113/68 95 11/28/17 13:25 68 14 146/70 95 11/28/17 13:15 70 14 133/66 99 11/28/17 13:05 97.6 F 65 15 119/63 98 - Lungs Lungs: Clear Ascult./Percussion - Airway Airway: Non-obstructed - Cardiovascular Regular Rate - Mental Status Mental Status: Alert & Oriented, Answers Appropriately - Pain Pain Scale: 3 - Nausea Vomiting Nausea Vomiting: Not Present - Hydration Hydration: NPO, Has not voided - Discharge PostOp Status: Transfer Patient to floor
[2017-11-28] MEDS ORDERED: Naloxone 0.4 MG/ML INJ IVP PRN (14:21)
[2017-11-28] MEDS ORDERED: OXYCODONE Oral CONC 10 MG/0.5 ML ORAL.SYG SL PRN (14:21)
[2017-11-28] MEDS ORDERED: Ondansetron 4 MG/2 ML VIAL IVP PRN (14:21)
[2017-11-28] MEDS: 0.9 % Sodium Chloride 1,000 ML IVC SCH (15:45)
[2017-11-28] MEDS: Ketorolac 15 MG/ML VIAL IVP SCH (17:01)
[2017-11-28] MEDS: *HR* Heparin 5,000 UNIT/ML VIAL SQ SCH (17:01)
[2017-11-29] MEDS: Ketorolac 15 MG/ML VIAL IVP SCH ×4 (00:17→17:13)
[2017-11-29 04:13] LABS: Basophils % 0.2 %; Hematocrit 32.8 % (37.5-50.1); Hemoglobin 10.8 g/dL (12.9-16.9); Immature Granulocytes % 0.4 % (0-4); Lymphocytes # 0.9 K/mcL (0.6-4.6); Lymphocytes % 9.5 %; Mean Corpuscular HGB Conc 32.9 g/dL (31.6-35.5); Mean Corpuscular Hemoglobin 28.1 pg (28.0-33.3); Mean Corpuscular Volume 85.4 fL (83.0-100.0); Mean Platelet Volume 10.8 fL (9.4-12.4); Monocytes # 1.1 K/mcL (0.0-1.3); Neutrophils # 7.8 K/mcL (1.6-8.9); Platelet Count 279 K/mcL (140-400); Red Blood Count 3.84 M/mcL (4.19-5.50); Red Cell Distribution Width 14.1 % (11.5-14.5); Segmented Neutrophils % 78.9 %
[2017-11-29 04:37] LABS: Calcium 8.6 mg/dL (8.6-10.3); Potassium 4.1 mEq/L (3.5-5.1)
[2017-11-29] MEDS: 0.9 % Sodium Chloride 1,000 ML IVC SCH ×2 (05:21→17:12)
[2017-11-29] MEDS: *HR* Heparin 5,000 UNIT/ML VIAL SQ SCH ×2 (05:23→17:13)
--- NOTE | 2017-11-29 13:31 | General Surgery Progress Note ---
<Debra Pruett - Last Filed: 11/29/17 16:00> Date of Encounter: 11/29/17 Time of Encounter: 13:29 - Assessment and Plan (1) Perforation of sigmoid colon due to diverticulitis Status: Resolved Post colostomy takedown and lysis of adhesions, POD 1 - started fulls after flatulence this afternoon - abdomen binder for comfort - Ketorolac IV of oxycodone SL for pain - zofran for nausea - path pending - start wound care tomorrow Disposition; anticipate discharge Friday once diet has advanced and wound dressing changed (2) PONCHO (acute kidney injury) Status: Resolved Scr 1.99 from baseline around 1.2 - hold Dyzide statin - increased IVF NS to 125 - repeat BMP in am (3) Diabetes mellitus type 2 in nonobese Status: Chronic Well controlled at home with diet alone, last A1C 6.1 - loowdose corrective scale if needed with q6hr checks (4) Hypertension Status: Chronic BP low after surgery crystal to 100/60 - hold PO metoprolol, dyazide, and clonidine - IV hydralazine q6 prn for SBP >160 Qualifiers: Hypertension type: essential hypertension Qualified Code(s): I10 - Essential (primary) hypertension (5) DVT prophylaxis Status: Chronic heparin SQ Subjective Patient reports: pain is less (felling of fullness or gas in his upper abdomen) , tolerating liquids well, no flatus, no bowel movement, afebrile Objective Vital Signs - Last 8 Hours Temp Pulse Resp BP Pulse Ox 11/29/17 10:48 97.7 F 77 16 122/69 95 11/29/17 05:42 98.0 F 85 14 113/69 95 Intake and Output 11/28/17 11/29/17 11/29/17 23:59 07:59 15:59 Intake Total 480 / 480 1000 / 1000 1476 / 1476 Output Total 0 / 0 250 / 250 0 / 0 Balance 480 / 480 750 / 750 1476 / 1476 Intake: IV Fluids 1000 / 1000 396 / 396 0.9 % Sodium Chloride 1,000 ML 1000 / 1000 396 / 396 @ 75 mls/hr IVC .[id number] [facility] Rx #:[id number] Oral 480 / 480 0 / 0 1080 / 1080 Output: Urine 0 / 0 250 / 250 0 / 0 Other: Meal Lunch # Bowel Movements 0 Weight 73.9 kg Patient Weight 11/29/17 23:59 Weight 73.9 kg - General physical appearance well developed, well nourished, no distress - Eyes normal ocular movement - ENT normal pinna, normal nares, normal mucosa, no hearing loss, no congestion - Respiratory normal expansion, normal respiratory effort, clear to auscultation - Cardiovascular Cardiovascular exam: Present: RRR, no murmurs/rubs/gallops - Abdomen Abdomen: Present: bowel sounds present, soft Abdominal Tenderness: LUQ Hernia: none Additional Comments: did not remove dressing as POD 1 - Integumentary no rash, no growths, no abnormal pigmentation - Neurologic CN 2-12 grossly intact, normal coordination, normal sensation - Musculoskeletal normal posture - Psychiatric oriented to time, oriented to person, oriented to place, speech is normal, memory intact - Labs 11/29/17 03:38 11/29/17 03:38 Diabetes panel 11/29/17 Range/Units 03:38 Sodium 137 (136-145) mEq/L Potassium 4.1 (3.5-5.1) mEq/L Chloride 102 (98-107) mEq/L Carbon Dioxide 24 (23-29) mEq/L BUN 28 H (8-23) mg/dL Creatinine 1.99 H (0.70-1.30) mg/dL Glucose 136 H (70-105) mg/dL Calcium 8.6 (8.6-10.3) mg/dL Calcium panel 11/29/17 Range/Units 03:38 Calcium 8.6 (8.6-10.3) mg/dL Pituitary panel 11/29/17 Range/Units 03:38 Sodium 137 (136-145) mEq/L Potassium 4.1 (3.5-5.1) mEq/L Chloride 102 (98-107) mEq/L Carbon Dioxide 24 (23-29) mEq/L BUN 28 H (8-23) mg/dL Creatinine 1.99 H (0.70-1.30) mg/dL Glucose 136 H (70-105) mg/dL Calcium 8.6 (8.6-10.3) mg/dL Adrenal panel 11/29/17 Range/Units 03:38 Sodium 137 (136-145) mEq/L Potassium 4.1 (3.5-5.1) mEq/L Chloride 102 (98-107) mEq/L Carbon Dioxide 24 (23-29) mEq/L BUN 28 H (8-23) mg/dL Creatinine 1.99 H (0.70-1.30) mg/dL Glucose 136 H (70-105) mg/dL Calcium 8.6 (8.6-10.3) mg/dL - VTE Documentation of Mechanical Device: Graduated compression elastic hosiery Consult Discharge Plan - Plan Additional Instructions: Must call PCP to follow up this week regarding HTN medications. Continue Fulls Diet at Homeuntill bowel movement then may advance diet as tolerated. Full liquid diet includes anything in the thin liquid diet plus: Milk: Dairy, Soy, Rice, and [place] (No Chocolate) Cream of Wheat, Cream of Rice, Grits Strained Creamed Soups (No Tomato or Broccoli) Vanilla and [place] Flavored Ice Cream Sherbet Vanilla and Butterscotch Pudding (No Chocolate or Coconut) Continue 3-4 [place] Instant Breakfast, Ensure, or an Equivalent Daily. May be mixed with Dairy for Thin Milkshakes. Thin liquids include: Apple, Cranberry, or Grape Juice (no citrus juice) Chicken Broth Beef Broth Flavored Gelatin (Jell-O) Decaffeinated Tea or Coffee Popsicles or Afghan Ice Caffeinated Beverages Will Be Permitted Based upon Tolerance and at a later date Dairy if tolerated Thin Milkshakes (strawberry or vanilla flavored- No chocolate) Drink 3-4 [place] instant breakfast, Ensure, or equivalent daily. May be mixed with dairy for thin milkshakes Daily Wound Care: Remove dressing and packing. Wash/Shower with antibacterial soap. Repack with 1/4 [place] tape. cover with a dry dressing. Tape to secure. May reinforce or change outer dressing as needed. General Surgical Discharge Instructions 1. No pushing, pulling, or lifting greater than 15 lbs for 2-4 weeks (depending upon procedure). 2. You may shower beginning today, but no tub baths, soaking, or swimming for 2 weeks. 3. You may resume driving when you are off narcotics and are safe to react in a car. 4. Take ibuprofen every 8 hours for discomfort. If this does not relieve discomfort, you may take the as needed Percocet. Take narcotics as directed. Do not take more narcotics then directed and do not share your narcotics with any other person. Do not drink alcohol while on narcotics. 5. Take stool softeners (Colace) or a water based laxative (Miralax) while taking narcotics. You may hold for loose stools. 6. Report any fevers greater than 100.5F, increase abdominal discomfort, drainage that looks like pus, increased redness or pain at the surgical site, or any vomiting. 7. Report any pain in the calves, shortness of breath, or rapid heartbeat. 8. Follow-up in the office as directed. 9. If you were prescribed antibiotics, do not stop them without talking to your provider. Referrals: Elroy Pritchett Jr, MD [Primary Care Provider] - Sharon Padgett CNP [Advanced Practice Nurse] - 12/12/17 10:00 am Prescriptions: Ondansetron HCl [Zofran] 4 mg PO Q6HR PRN #15 tab PRN Reason: Nausea And Vomiting Docusate [Colace] 100 mg PO BID #30 capsule Ibuprofen 800 mg PO Q8H #42 tablet Oxycodone HCl/Acetaminophen [Percocet 5-325 mg Tablet] 1 each PO Q6H 7 Days #28 tablet <Robert Moss - Last Filed: 11/30/17 17:43> Date of Encounter: 11/29/17 Objective Vital Signs - Last 8 Hours Temp Pulse Resp BP Pulse Ox 11/30/17 10:31 98.6 F 78 14 149/77 96 Intake and Output 11/30/17 11/30/17 11/30/17 07:59 15:59 23:59 Intake Total 1120 / 1120 Output Total 1150 / 1150 450 / 450 Balance -30 / -30 -450 / -450 Intake: IV Fluids 1000 / 1000 0.9 % Sodium Chloride 1,000 ML 1000 / 1000 @ 125 mls/hr IVC .Q8H [facility] Rx#: [id number] Oral 120 / 120 Output: Urine 1150 / 1150 450 / 450 Other: Weight 79.5 kg Blood Glucose* 134 114 Patient Weight 11/30/17 23:59 Weight 79.5 kg - Labs 11/30/17 04:32 11/30/17 04:32 Diabetes panel 11/30/17 Range/Units 04:32 Sodium 141 (136-145) mEq/L Potassium 3.7 (3.5-5.1) mEq/L Chloride 111 H (98-107) mEq/L Carbon Dioxide 26 (23-29) mEq/L BUN 21 (8-23) mg/dL Creatinine 1.29 (0.70-1.30) mg/dL Glucose 117 H (70-105) mg/dL Calcium 8.2 L (8.6-10.3) mg/dL Calcium panel 11/30/17 Range/Units 04:32 Calcium 8.2 L (8.6-10.3) mg/dL Pituitary panel 11/30/17 Range/Units 04:32 Sodium 141 (136-145) mEq/L Potassium 3.7 (3.5-5.1) mEq/L Chloride 111 H (98-107) mEq/L Carbon Dioxide 26 (23-29) mEq/L BUN 21 (8-23) mg/dL Creatinine 1.29 (0.70-1.30) mg/dL Glucose 117 H (70-105) mg/dL Calcium 8.2 L (8.6-10.3) mg/dL Adrenal panel 11/30/17 Range/Units 04:32 Sodium 141 (136-145) mEq/L Potassium 3.7 (3.5-5.1) mEq/L Chloride 111 H (98-107) mEq/L Carbon Dioxide 26 (23-29) mEq/L BUN 21 (8-23) mg/dL Creatinine 1.29 (0.70-1.30) mg/dL Glucose 117 H (70-105) mg/dL Calcium 8.2 L (8.6-10.3) mg/dL - Attending Attestation I examined this patient and my medical decision-making was reviewed with the Resident Physician. I agree with the documented findings, disposition and treatment plan as described except to the extent set forth below. The patient is doing quite well after takedown of colostomy robotically. The patient has good bowel sounds but no flatus. His diet has been started. We will anticipate discharge tomorrow. Continue supportive care and hydration. Robert Moss MD FACS
[2017-11-29] MEDS ORDERED: *HR* Dextrose 50 % in Water (Syg) 50 ML SYRINGE IVP PRN (13:55)
[2017-11-29] MEDS ORDERED: D5% in Water 1,000 ML IVC PRN (13:55)
[2017-11-29] MEDS ORDERED: Dextrose Gel 15 GM/37.5 ML TUBE PO PRN ×2 (13:55)
[2017-11-29] MEDS: Insulin LISPRO 300 UNITS/3 ML VIAL SQ SCH (17:14)
[2017-11-29] MEDS ORDERED: *HR* Metoprolol 5 MG/5 ML VIAL IVP ONE (21:35)
[2017-11-29] MEDS ORDERED: cloNIDine HCl 0.1 MG TABLET PO ONE (21:38)
[2017-11-29] MEDS: carBAMazepine 200 MG TABLET PO SCH (22:21)
[2017-11-30] MEDS: Ketorolac 15 MG/ML VIAL IVP SCH ×3 (00:02→12:30)
[2017-11-30] MEDS: Insulin LISPRO 300 UNITS/3 ML VIAL SQ SCH ×3 (00:53→12:30)
[2017-11-30] MEDS: 0.9 % Sodium Chloride 1,000 ML IVC SCH (01:18)
[2017-11-30 05:17] LABS: Basophils % 0.4 %; Eosinophils # 0.1 K/mcL (0.0-0.6); Eosinophils % 1.7 %; Hematocrit 26.8 % (37.5-50.1); Immature Granulocytes % 0.2 % (0-4); Lymphocytes # 0.8 K/mcL (0.6-4.6); Lymphocytes % 14.4 %; Mean Corpuscular HGB Conc 31.7 g/dL (31.6-35.5); Mean Corpuscular Hemoglobin 27.4 pg (28.0-33.3); Mean Corpuscular Volume 86.5 fL (83.0-100.0); Mean Platelet Volume 10.9 fL (9.4-12.4); Monocytes # 0.6 K/mcL (0.0-1.3); Monocytes % 10.7 %; Neutrophils # 3.8 K/mcL (1.6-8.9); Platelet Count 176 K/mcL (140-400); Red Cell Distribution Width 14.2 % (11.5-14.5); Segmented Neutrophils % 72.6 %
[2017-11-30 05:19] LABS: Hemoglobin 8.5 g/dL (12.9-16.9)
[2017-11-30 05:40] LABS: BUN/Creatinine Ratio 16 (6-26); Blood Urea Nitrogen 21 mg/dL (8-23); Calcium 8.2 mg/dL (8.6-10.3); Carbon Dioxide 26 mEq/L (23-29); Chloride 111 mEq/L (98-107); Glucose 117 mg/dL (70-105); Osmolality,Calculated 296 (280-300); Potassium 3.7 mEq/L (3.5-5.1); Sodium 141 mEq/L (136-145); eGFR For Non-African Americans 56 (> 60)
[2017-11-30] MEDS: *HR* Heparin 5,000 UNIT/ML VIAL SQ SCH (06:10)
[2017-11-30] MEDS ORDERED: cloNIDine HCl 0.1 MG TABLET PO SCH (09:00)
[2017-11-30] MEDS: carBAMazepine 200 MG TABLET PO SCH (09:16)
[2017-11-30 10:32] VITALS: BP 149/77
--- NOTE | 2017-11-30 10:37 | Discharge Summary ---
<Debra Pruett - Last Filed: 11/30/17 14:40> - NOTES TO OUTPATIENT PROVIDER Notes to Outpatient Provider: Please review patients HTN medications was he had PONCHO during admission that resolved with IVF. He displayed rebound hypertension when clonidine was stopped for surgery then later was hypotensive and medications held but gradual increased during stay- home medications resumed on discharge Orders not resulted at time of discharge: Pending orders 11/28/17 12:51 Surgical Pathology [PTH] Routine Date of Encounter: 11/30/17 Time of Encounter: 11:00 - Discharge Diagnosis (1) Perforation of sigmoid colon due to diverticulitis Priority: Primary Status: Resolved (2) PONCHO (acute kidney injury) Priority: Secondary Status: Resolved (3) Diabetes mellitus type 2 in nonobese Priority: Secondary Status: Chronic (4) Hypertension Priority: Secondary Status: Chronic Qualifiers: Hypertension type: essential hypertension Qualified Code(s): I10 - Essential (primary) hypertension General Surgery Exam Initial Vital Signs Temp Pulse Resp BP Pulse Ox 98.5 F 67 18 176/93 98 11/28/17 09:18 11/28/17 09:18 11/28/17 09:18 11/28/17 09:18 11/28/17 09:18 - General physical appearance well developed, well nourished, no distress - Eyes normal ocular movement - Respiratory normal expansion, normal respiratory effort, clear to auscultation - Cardiovascular Cardiovascular exam: Present: RRR, no murmurs/rubs/gallops - Abdomen Abdomen general surgery: Present: bowel sounds present, soft, non tender Hernia: Present: none - Incision Incision: Present: approximated. Absent: draining, inflamed, indurated - Integumentary Integumentary general surgery: Present: warm and dry, no abnormal pigmentation - Neurologic Present: CN 2-12 grossly intact, normal coordination, normal sensation - Musculoskeletal Present: normal gait, normal posture - Psychiatric Psychiatric general surgery: Present: A&Ox3, speech is normal, memory intact - Hospital Course Hospital course: Mr. Mohan is a 67 year old male hx diverticulitises resulting in sigmoid resection and end colostomy underwent colostomy take down and adhesion lysis with Dr Wheeler on 11-28-17. He recoved well and diet was slowly advanced. His pain resolved and he has bowel movement. POD 2 wound packing was removed and changed. He was discharged home with instructiona to advance diet from fulls as tolerated and education on wound care. - Time Spent with Patient Total time spent providing and/or coordinating discharge services: Greater than 30 minutes - Discharge Medications Prescriptions: Ondansetron HCl [Zofran] 4 mg PO Q6HR PRN #15 tab PRN Reason: Nausea And Vomiting Docusate [Colace] 100 mg PO BID #30 capsule Ibuprofen 800 mg PO Q8H #42 tablet Oxycodone HCl/Acetaminophen [Percocet 5-325 mg Tablet] 1 each PO Q6H 7 Days #28 tablet Home Medications: Aspirin [Adult Aspirin Regimen] 81 mg PO DAILY 11/28/17 [History] Fenofibrate [Tricor] 54 mg PO DAILY 11/28/17 [History] Fluticasone Propionate Nasal [Flonase] 1 spr NS DAILY PRN 11/28/17 [History] Folic Acid 1 mg PO DAILY 11/28/17 [History] Metoprolol [Lopressor] 50 mg PO BID 11/28/17 [History] Simvastatin [Zocor] 80 mg PO HS 11/28/17 [History] Triamterene/HCTZ 37.5/25mg [Dyazide] 1 tab PO DAILY 11/28/17 [History] Vitamin E Acid Succinate [Vitamin E] 400 units PO DAILY 11/28/17 [History] carBAMazepine [Tegretol Xr] 200 mg PO BID 11/28/17 [History] cloNIDine HCl [CloNIDine HCl] 0.1 mg PO BID 11/28/17 [History] Docusate [Colace] 100 mg PO BID #30 capsule 11/30/17 [Rx] Ibuprofen 800 mg PO Q8H #42 tablet 11/30/17 [Rx] Ondansetron HCl [Zofran] 4 mg PO Q6HR PRN #15 tab 11/30/17 [Rx] Oxycodone HCl/Acetaminophen [Percocet 5-325 mg Tablet] 1 each PO Q6H 7 Days #28 tablet 11/30/17 [Rx] Allergies/Adverse Reactions: 3 Allergy/AdvReac Type Severity Reaction Status Date / Time honey suckle Allergy Congested Uncoded 01/20/16 08:15 Date of admission: 11/28/17 14:01 Primary care physician: Elroy Pritchett Jr, MD Discharging clinician: Debra Pruett Anticipated date of discharge: 11/30/17 Labs on day of discharge: Labs from last 24 hours 11/30/17 11/30/17 11/30/17 05:59 04:32 04:32 WBC 5.2 RBC 3.10 L Hgb 8.5 L D Hct 26.8 L MCV 86.5 MCH 27.4 L MCHC 31.7 RDW 14.2 Plt Count 176 MPV 10.9 Immature Gran % 0.2 Seg Neutrophils % 72.6 Lymphocytes % 14.4 Monocytes % 10.7 Eosinophils % 1.7 Basophils % 0.4 Neutrophils # 3.8 Lymphocytes # 0.8 Monocytes # 0.6 Eosinophils # 0.1 Basophils # 0.0 Sodium 141 Potassium 3.7 Chloride 111 H Carbon Dioxide 26 BUN 21 Creatinine 1.29 Est GFR ( Amer) > 60 Est GFR (Non-Af Amer) 56 L BUN/Creatinine Ratio 16 Glucose 117 H POC Glucose 134 H Calculated Osmolality 296 Calcium 8.2 L 11/30/17 00:47 WBC RBC Hgb Hct MCV MCH MCHC RDW Plt Count MPV Immature Gran % Seg Neutrophils % Lymphocytes % Monocytes % Eosinophils % Basophils % Neutrophils # Lymphocytes # Monocytes # Eosinophils # Basophils # Sodium Potassium Chloride Carbon Dioxide BUN Creatinine Est GFR ( Amer) Est GFR (Non-Af Amer) BUN/Creatinine Ratio Glucose POC Glucose 156 H Calculated Osmolality Calcium - Patient Status Disposition: Home, Self-Care Condition: Good Functional capacity at discharge: independent ambulation Overall status at discharge: patient is progressing back to baseline - Discharge Instructions Follow Up With: Elroy Pritchett Jr, MD [Primary Care Provider] - Sharon Padgett CNP [Advanced Practice Nurse] - 12/12/17 10:00 am Additional Instructions: Must call PCP to follow up this week regarding HTN medications. Continue Fulls Diet at Homeuntill bowel movement then may advance diet as tolerated. Full liquid diet includes anything in the thin liquid diet plus: Milk: Dairy, Soy, Rice, and [place] (No Chocolate) Cream of Wheat, Cream of Rice, Grits Strained Creamed Soups (No Tomato or Broccoli) Vanilla and [place] Flavored Ice Cream Sherbet Vanilla and Butterscotch Pudding (No Chocolate or Coconut) Continue 3-4 [place] Instant Breakfast, Ensure, or an Equivalent Daily. May be mixed with Dairy for Thin Milkshakes. Thin liquids include: Apple, Cranberry, or Grape Juice (no citrus juice) Chicken Broth Beef Broth Flavored Gelatin (Jell-O) Decaffeinated Tea or Coffee Popsicles or [place] Ice Caffeinated Beverages Will Be Permitted Based upon Tolerance and at a later date Dairy if tolerated Thin Milkshakes (strawberry or vanilla flavored- No chocolate) Drink 3-4 [place] instant breakfast, Ensure, or equivalent daily. May be mixed with dairy for thin milkshakes Daily Wound Care: Remove dressing and packing. Wash/Shower with antibacterial soap. Repack with 1/4 [place] tape. cover with a dry dressing. Tape to secure. May reinforce or change outer dressing as needed. General Surgical Discharge Instructions 1. No pushing, pulling, or lifting greater than 15 lbs for 2-4 weeks (depending upon procedure). 2. You may shower beginning today, but no tub baths, soaking, or swimming for 2 weeks. 3. You may resume driving when you are off narcotics and are safe to react in a car. 4. Take ibuprofen every 8 hours for discomfort. If this does not relieve discomfort, you may take the as needed Percocet. Take narcotics as directed. Do not take more narcotics then directed and do not share your narcotics with any other person. Do not drink alcohol while on narcotics. 5. Take stool softeners (Colace) or a water based laxative (Miralax) while taking narcotics. You may hold for loose stools. 6. Report any fevers greater than 100.5F, increase abdominal discomfort, drainage that looks like pus, increased redness or pain at the surgical site, or any vomiting. 7. Report any pain in the calves, shortness of breath, or rapid heartbeat. 8. Follow-up in the office as directed. 9. If you were prescribed antibiotics, do not stop them without talking to your provider. - Diet and Activity Activity: increase activity as tolerated Diet: other <Robert Moss - Last Filed: 11/30/17 18:02> Orders not resulted at time of discharge: Pending orders 11/28/17 12:51 Surgical Pathology [PTH] Routine Date of Encounter: 09/30/18 General Surgery Exam Initial Vital Signs Temp Pulse Resp BP Pulse Ox 98.5 F 67 18 176/93 98 11/28/17 09:18 11/28/17 09:18 11/28/17 09:18 11/28/17 09:18 11/28/17 09:18 - Hospital Course Hospital course: Mr. Mohan is a 67 year old male - Time Spent with Patient Total time spent providing and/or coordinating discharge services: Date of admission: 11/28/17 14:01 Primary care physician: Elroy Pritchett Jr, MD Labs on day of discharge: Labs from last 24 hours 11/30/17 11/30/17 11/30/17 05:59 04:32 04:32 WBC 5.2 RBC 3.10 L Hgb 8.5 L D Hct 26.8 L MCV 86.5 MCH 27.4 L MCHC 31.7 RDW 14.2 Plt Count 176 MPV 10.9 Immature Gran % 0.2 Seg Neutrophils % 72.6 Lymphocytes % 14.4 Monocytes % 10.7 Eosinophils % 1.7 Basophils % 0.4 Neutrophils # 3.8 Lymphocytes # 0.8 Monocytes # 0.6 Eosinophils # 0.1 Basophils # 0.0 Sodium 141 Potassium 3.7 Chloride 111 H Carbon Dioxide 26 BUN 21 Creatinine 1.29 Est GFR ( Amer) > 60 Est GFR (Non-Af Amer) 56 L BUN/Creatinine Ratio 16 Glucose 117 H POC Glucose 134 H Calculated Osmolality 296 Calcium 8.2 L 11/30/17 00:47 WBC RBC Hgb Hct MCV MCH MCHC RDW Plt Count MPV Immature Gran % Seg Neutrophils % Lymphocytes % Monocytes % Eosinophils % Basophils % Neutrophils # Lymphocytes # Monocytes # Eosinophils # Basophils # Sodium Potassium Chloride Carbon Dioxide BUN Creatinine Est GFR ( Amer) Est GFR (Non-Af Amer) BUN/Creatinine Ratio Glucose POC Glucose 156 H Calculated Osmolality Calcium - Attending Attestation I examined this patient and my medical decision-making was reviewed with the Resident Physician. I agree with the documented findings, disposition and treatment plan as described except to the extent set forth below. The patient is seen and evaluated on morning rounds with resident. He is quite well after takedown colostomy. He is passing flatus and tolerating diet. He is ready for discharge home. Follow-up as directed. Robert Moss MD FACS
== END 2017-11-30 14:25 | disposition home or self-care (01) | DRG 330 ==
LOC: SAMDAY 08:50 → 3ANU 14:01
PROVIDERS: ADMIT Surgery; ATTEND Surgery